=== PATIENT | male | born 1955 | race Caucasian/White ===

== ENCOUNTER 2020-03-19 10:28 | Day surgery (SDC) | payer OTHER, SELFPAY ==
[2020-03-13 11:51] VITALS: BMI 32.5
--- NOTE | 2020-03-17 14:00 | P.CONAN_ITS ---
Documented by User: Janeth Cheatham 03/17/20 14:01 HPI - Anesthesia Eval Consult details Narrative: 65yo M for Upper Endoscopy and Colonoscopy [facility] Past Medical History Medical History Cervical vertebral fusion Depression Diabetes Elevated cholesterol GERD (gastroesophageal reflux disease) Hx of anxiety disorder Thyroid disease Surgical History Surgical History H/O cervical discectomy H/O colonoscopy History of esophagogastroduodenoscopy (EGD) History of revision of total knee arthroplasty Hx of shoulder surgery Hx of total knee arthroplasty Hx of ventral hernia repair Social History Social History Smoking Status: Former smoker Advance Directives Information Provided: No Meds Allergies Allergy/AdvReac Type Severity Reaction Status Date / Time diclofenac Allergy Intermediate Itching Verified 03/13/20 11:56 Home Medications Medication Instructions Recorded Confirmed Type atorvastatin 1 tab PO DAILY 03/13/20 03/13/20 History cholecalciferol (vitamin D3) 50 mcg PO DAILY 03/13/20 03/13/20 History [Vitamin D3] dulaglutide [Trulicity] 1 mg SUBCUT QWEEK 03/13/20 03/13/20 History empagliflozin [Jardiance] 1 tab PO DAILY 03/13/20 03/13/20 History fenofibrate nanocrystallized 48 mg PO DAILY 03/13/20 03/13/20 History ferrous sulfate 325 mg PO DAILY 03/13/20 03/13/20 History insulin glargine [Lantus Solostar 56 unit SUBCUT BEDTIME 03/13/20 03/13/20 History U-100 Insulin] levothyroxine 1 tab PO DAILY 03/13/20 03/13/20 History melatonin 3 mg PO BEDTIME PRN 03/13/20 03/13/20 History metformin 2 tab PO BID 03/13/20 03/13/20 History omeprazole 1 cap PO BID 03/13/20 03/13/20 History paroxetine HCl 1 tab PO QAM 03/13/20 03/13/20 History tamsulosin 1 cap PO DAILY 03/13/20 03/13/20 History Exam Exam Date and Time: March 17, 2020 1400 Height,Weight and Vital Signs: Height 6 ft Weight 108.862 kg Assessment and Plan Assessment Anesthesia Assessment: Chart Reviewed Documented by User: Tika Rao 03/19/20 10:56 PMFSH Past Medical History Medical History Cervical vertebral fusion Depression Diabetes Elevated cholesterol GERD (gastroesophageal reflux disease) Hx of anxiety disorder Thyroid disease Surgical History Surgical History H/O cervical discectomy H/O colonoscopy History of esophagogastroduodenoscopy (EGD) History of revision of total knee arthroplasty Hx of shoulder surgery Hx of total knee arthroplasty Hx of ventral hernia repair Social History Social History Smoking Status: Former smoker Advance Directives Information Provided: No Meds Allergies Allergy/AdvReac Type Severity Reaction Status Date / Time diclofenac Allergy Intermediate Itching Verified 03/13/20 11:56 Home Medications Medication Instructions Recorded Confirmed Type atorvastatin 1 tab PO DAILY 03/13/20 03/13/20 History cholecalciferol (vitamin D3) 50 mcg PO DAILY 03/13/20 03/13/20 History [Vitamin D3] dulaglutide [Trulicity] 1 mg SUBCUT QWEEK 03/13/20 03/13/20 History empagliflozin [Jardiance] 1 tab PO DAILY 03/13/20 03/13/20 History fenofibrate nanocrystallized 48 mg PO DAILY 03/13/20 03/13/20 History ferrous sulfate 325 mg PO DAILY 03/13/20 03/13/20 History insulin glargine [Lantus Solostar 56 unit SUBCUT BEDTIME 03/13/20 03/13/20 Hi story U-100 Insulin] levothyroxine 1 tab PO DAILY 03/13/20 03/13/20 History melatonin 3 mg PO BEDTIME PRN 03/13/20 03/13/20 History metformin 2 tab PO BID 03/13/20 03/13/20 History omeprazole 1 cap PO BID 03/13/20 03/13/20 History paroxetine HCl 1 tab PO QAM 03/13/20 03/13/20 History tamsulosin 1 cap PO DAILY 03/13/20 03/13/20 History Exam Airway Mallampati Class: II TM Dist: >3cm Neck ROM: Full Denture: Lower Assessment and Plan Assessment Anesthesia Assessment: Anesthesia Plan Discussed Final Anesthetic Review NPO: Yes ASA Class: II Final Preanesthetic Review: No Changes in Pt Med Stat, Meds/Allgs Chart Reviewed, Consent Obtained/Reviewed and Anes Risks/Benef Reviewed Patient Risk: Intermediate Procedure Risk: Low Assessment/Block/Sedation in SS: Assess/Block/Sedation-SS Anesthetic Plan Anesthetic Plan: MAC: Disposition: Standard PACU
--- NOTE | 2020-03-19 10:43 | PC.NURSE ---
patient admin his own fleet enema and still remains liquid brown.
--- NOTE | 2020-03-19 10:46 | PC.NURSE ---
md elder aware of liquid brown stool after first enema. second enema being performed by patient in bathroom per md elder. racheal well.
[2020-03-19] MEDS: Sodium Phosphate,Mono-Dibasic 133 ML ENEMA 266 ML PR (10:51)
[2020-03-19 10:54] VITALS: BP 163/139; PULSE 98; RESP 16; TEMP 36.4; O2SAT 96
[2020-03-19 10:58] LABS: Glucose, Whole Blood 115 mg/dL (60-115)
[2020-03-19] MEDS: Lactated Ringers 1,000 ML 100 ML IVCONT (10:59)
--- NOTE | 2020-03-19 10:59 | MHC.SHP ---
Pre-Procedural Eval Section B Chief Complaint: Gerd, Hx of Tubular Adenomas Polyp Relevant Family History (Specify if Yes): No Relevant Social History: None Present Medications: see Short Stay Collaborative assessment Medical History: Significant History (hx of gastric polyp, hypothyroidism, depression, Dm,. anxiety, GERD) History of Previous Operations: Relevant previous surgery/procedure and date(s) (knee replaceemnt, hernia repair) Allergies: Allergies Allergy/AdvReac Type Severity Reaction Status Date / Time diclofenac Allergy Intermediate Itching Verified 03/13/20 11:56 Review of Systems Sugical H&P ROS: Negative: Constitution, Cardiovascular, Respiratory, Neurological, Psychiatric, Hem-Onc, Allergic/Immunologic, Gastrointestinal, Genitourinary, Musculoskeletal, Integumentary, Endocrine and Eyes/Ears/Nose/Throat Exam Surgical H&P Exam: Normal: HEENT, Normal: Heart, Normal: Lungs, Normal: Extremities, Normal: Abdomen, Normal: Skin and Normal: Neurological Plan Diagnosis/Plan: Unchanged Patient has been examined and remains a candidate for the planned procedure
--- NOTE | 2020-03-19 11:01 | PC.NURSE ---
md elder aware of second fleet enema without success. remains liquid brown.
--- NOTE | 2020-03-19 11:13 | PM.OP ---
Brief Operative Note Date of procedure: 03/19/20 Pre-op diagnosis: hx of anemia and gastric polyp Post-op diagnosis: same Procedure: see op note Surgeon: Ely Colmenares MD Anesthesia: MAC Estimated blood loss (mL): 0 Condition: stable Disposition: PACU
--- NOTE | 2020-03-19 11:22 | P.OP_ITS ---
Operative Note Operative Note Narrative: Operative Information Procedure Description: EGD, Colonoscopy FLEXIBLE TRANSORAL UPPER GASTROINTESTINAL ENDOSCOPY AND COLONOSCOPY PROCEDURE NOTE UPPER ENDOSCOPY Consent: Indications for the procedure and potential complications of bleeding, perforation, reaction to medications and missed diagnosis were discussed with the patient and informed consent was obtained. Instrument: Olympus GIF H 190 J mid size upper endoscope Monitoring: Vital signs and clinical assessment, continuous EKG monitoring, Pulse oximetry, Carbon Dioxide monitoring and blood pressure monitoring were done throughout the procedure. Procedure: The patient was placed in the left lateral decubitis position and pre-procedure medications were administered and a bite block was placed. The endoscope was inserted into the mouth and advanced under direct vision to the third part of duodenum. A careful inspection was made as the upper endoscope was withdrawn including a retroflexed examination of the proximal stomach; Findings and interventions are described below. Findings: Larynx:normal Esophagus: GE junction at 40 cm, diaphragm hiatus at 40 cm, irregular Z line slightly nodular appearance, bx taken Stomach: Patchy erythema min antrum scar from prior polypectomy noted. Biopsies were obtained. Grade 2 flap valve on retroflexed examination of the cardia. Several benign appearing fundic gland polyps noted Duodenum: Normal bulb and descending duodenum, bx taken Intervention: Biopsies as noted above COLONOSCOPY Instrument: Olympus variable stiffness pediatric scope 190L Colonoscopy Monitoring: Vital signs and clinical assessment, continuous EKG monitoring, Pulse oximetry, Carbon Dioxide monitoring and blood pressure monitoring were done throughout the procedure. Colon withdrawal time was 19 minutes. Procedure: The patient was placed in the left lateral decubitis position and pre-procedure medications were administered. After a digital rectal examination of the ano-rectum, the video colonoscope was inserted into the rectum and advanced through the colon to the cecum/TI. The colonoscope was slowly withdrawn in a retrograde panoramic fashion and the colon mucosa was carefully examined including a retroflexed view of the rectum. Findings and interventions are described below. Procedure Difficulty:easy Findings: Terminal Ileum-normal Cecum:normal Ascending Colon: normal Transverse Colon -normal Descending Colon:normal Sigmoid Colon: 8-10 mm sessile polyp removed with cold snare Rectum: Retroflexion with small internal hemorrhoids, grade I Anorectum - normal Colon preparation: [place] Bowel Preparation Scale Right colon; 1 Transverse colon: 2 Left colon; 1 (0 = Unprepared colon segment with mucosa not seen due to solid stool that cannot be cleared. 1 = Portion of mucosa of the colon segment seen, but other areas of the colon segment not well seen due to staining, residual stool and/or opaque liquid. 2 = Minor amount of residual staining, small fragments of stool and/or opaque liquid, but mucosa of colon segment seen well. 3 = Entire mucosa of colon segment seen well with no residual staining, small fragments of stool or opaque liquid) Impression and Post Procedure Diagnosis: Endoscopy Findings: gastritis Colonoscopy Findings: polyp internal hemorrhoids Plan: Await Pathology results Repeat Colonoscopy in 6-12 months due to prep or earlier if clinically indicated High fiber diet leaflet avoid straining at stool, epsom salts and sitz bath prn, anusol supps or cream prn Above findings were reviewed with the patient and relevant handouts were provided if indicated.
[2020-03-19 11:57] VITALS: BP 139/88; PULSE 87; RESP 16; TEMP 36.1; O2SAT 97
[2020-03-19 12:10] VITALS: BP 128/79; PULSE 85; RESP 20; O2SAT 95
--- NOTE | 2020-03-19 12:37 | HO.POSTANES ---
Post Anesthesia Evaluation Post Anesthesia Evaluation Vital Signs: Vital Signs Temp Pulse Resp BP Pulse Ox 03/19/20 12:10 97.0 F 85 20 128/79 95 03/19/20 11:57 97.0 F 87 16 139/88 97 03/19/20 10:54 97.6 F 98 16 163/139 H 96 Anesthesia: General (tiva) Mental Status: Awake Pain Control: Satisfactory Nausea/Vomiting: None Hydration: Adequate Anesthesia-Related Issues: No Anes. Related Issues
== END 2020-03-19 12:49 | disposition home or self-care (01) ==
PROVIDERS: Visit Provider Internal Medicine Gastroenterology
PROC: (CPT 45385; principal; 2020-03-19 11:30)
DX: Z12.11 Encounter for screening for malignant neoplasm of colon (principal); Z86.010 Personal history of colon polyps; D12.5 Benign neoplasm of sigmoid colon; K64.0 First degree hemorrhoids; K29.60 Other gastritis without bleeding; K31.7 Polyp of stomach and duodenum; K44.9 Diaphragmatic hernia without obstruction or gangrene; K21.9 Gastro-esophageal reflux disease without esophagitis; E11.9 Type 2 diabetes mellitus without complications; Z79.4 Long term (current) use of insulin; F32.9 Major depressive disorder, single episode, unspecified; E03.9 Hypothyroidism, unspecified; Z79.899 Other long term (current) drug therapy; Z88.8 Allergy status to other drugs, medicaments and biological substances; Z96.651 Presence of right artificial knee joint; Z87.891 Personal history of nicotine dependence
CPT/HCPCS: 45385; 43239; 82947; 88305; 88342

== ENCOUNTER → 2020-04-02 12:59 | Outpatient (BNVA) | payer OTHER, SELFPAY | PROVIDERS: Visit Provider Nurse Practitioner | DX: D12.5 Benign neoplasm of sigmoid colon (principal); K64.0 First degree hemorrhoids; K21.9 Gastro-esophageal reflux disease without esophagitis; D64.9 Anemia, unspecified; Z86.010 Personal history of colon polyps; Z87.19 Personal history of other diseases of the digestive system; Z98.890 Other specified postprocedural states | CPT/HCPCS: Q3014 ==

== ENCOUNTER 2020-06-04 09:26 | Outpatient (REF) | payer OTHER, SELFPAY | END 2020-06-04 09:27 | disposition home or self-care (01) | LOC: HO.HMGCLDS 09:26 | PROVIDERS: PCP Nurse Practitioner Family; Visit Provider Nurse Practitioner Gerontology | DX: Z13.89 Encounter for screening for other disorder (principal) ==

== ENCOUNTER 2020-06-05 10:20 | Outpatient (REF) | payer OTHER, SELFPAY ==
[2020-06-05 11:14] LABS: MANUAL DIFF FLAG NO
[2020-06-05 11:22] LABS: Basophils Percent Auto 0.6 % (0-2); Eosinophils Absolute Auto 0.3 X10*3/uL (0.0-0.4); Eosinophils Percent Auto 5.1 % (0-4); Hematocrit 50.8 % (42-52); Hemoglobin 16.7 g/dl (14.0-18.0); Imm Gran Abs Auto 0.04 X10*3/uL (0.00-0.03); Imm Gran Pct Auto 0.8 % (0.0-0.4); Lymphocytes Absolute Auto 1.6 X10*3/uL (1.2-4.9); Lymphocytes Percent Auto 29.9 % (20-40); Mean Corpuscular HGB Conc 32.9 g/dl (31.0-36.0); Mean Corpuscular Hemoglobin 31.2 pg (27.0-33.0); Mean Corpuscular Volume 94.8 fL (80-98); Mean Platelet Volume 11.3 fL (9.4-12.4); Monocytes Absolute Auto 0.5 X10*3/uL (0.1-1.2); Monocytes Percent Auto 9.2 % (2-11); Neutrophils Absolute Auto 2.9 X10*3/uL (2.0-8.3); Neutrophils Percent Auto 54.4 % (45-73); Platelet Count 147 X10*3/uL (160-400); Red Blood Count 5.36 X10*6/uL (4.60-5.80); Red Cell Distribution Width 13.6 % (11.0-16.0); White Blood Count 5.3 X10*3/uL (4.8-10.8)
[2020-06-05 11:30] LABS: Estimated Average Glucose 157 mg/dL; Hemoglobin A1c % 7.1 %
[2020-06-05 12:15] LABS: Alanine Aminotransferase 35 U/L (0-40); Albumin Level 4.6 g/dL (3.5-5.0); Alkaline Phosphatase 65 U/L (39-117); Anion Gap 14 (12-20); Aspartate Amino Transferase 19 U/L (5-37); Bilirubin Total 0.8 mg/dL (0.0-1.0); Blood Urea Nitrogen 16 mg/dL (9-16); Carbon Dioxide 31 mmol/L (22-29); Chloride 103 mmol/L (96-108); Cholesterol 167 mg/dL; Estimated Glomerular Filt Rate > 60; Ferritin 37 ng/mL (20-250); Glucose Fasting 144 mg/dL (60-99); HDL Cholesterol 32 mg/dL; LDL Cholesterol Calculated 95 mg/dl; Potassium 4.4 mmol/l (3.3-5.1); Sodium 144 mmol/L (135-145); TSH reflex Free T4 3.41 mIU/mL (0.32-4.0); Total Protein 6.7 g/dL (6.5-8.0); Triglycerides 202 mg/dL
[2020-06-05 12:28] LABS: Creatinine Urine 106.55 mg/dL; Microalbum/Creatinine Ratio Ur 5.6 ug/mg cr
== END 2020-06-05 10:21 | disposition home or self-care (01) ==
LOC: HO.HMGCLDS 10:20
PROVIDERS: Nurse Practitioner Gerontology; PCP Nurse Practitioner Family; Visit Provider Nurse Practitioner Family
DX: D64.9 Anemia, unspecified (principal); E03.9 Hypothyroidism, unspecified; E11.9 Type 2 diabetes mellitus without complications; D69.6 Thrombocytopenia, unspecified
CPT/HCPCS: 36415; 80053; 80061; 82043; 82728; 83036; 84443; 85025

== ENCOUNTER → 2020-07-04 08:52 | Outpatient (BNVA) | payer OTHER, SELFPAY | PROVIDERS: PCP Nurse Practitioner Family; Visit Provider Nurse Practitioner Gerontology | DX: E11.42 Type 2 diabetes mellitus with diabetic polyneuropathy (principal); E78.5 Hyperlipidemia, unspecified | CPT/HCPCS: 82947; 99212 ==

== ENCOUNTER 2020-07-09 10:08 | Outpatient (REF) | payer OTHER, SELFPAY ==
[2020-07-09 11:07] LABS: MANUAL DIFF FLAG NO
[2020-07-09 11:24] LABS: Basophils Percent Auto 0.5 % (0-2); Eosinophils Absolute Auto 0.2 X10*3/uL (0.0-0.4); Eosinophils Percent Auto 3.6 % (0-4); Hematocrit 50.3 % (42-52); Hemoglobin 16.4 g/dl (14.0-18.0); Imm Gran Abs Auto 0.03 X10*3/uL (0.00-0.03); Imm Gran Pct Auto 0.5 % (0.0-0.4); Lymphocytes Absolute Auto 1.7 X10*3/uL (1.2-4.9); Lymphocytes Percent Auto 26.4 % (20-40); Mean Corpuscular HGB Conc 32.6 g/dl (31.0-36.0); Mean Corpuscular Hemoglobin 30.8 pg (27.0-33.0); Mean Corpuscular Volume 94.5 fL (80-98); Mean Platelet Volume 11.3 fL (9.4-12.4); Monocytes Absolute Auto 0.5 X10*3/uL (0.1-1.2); Monocytes Percent Auto 7.9 % (2-11); Neutrophils Percent Auto 61.1 % (45-73); Platelet Count 177 X10*3/uL (160-400); Red Blood Count 5.32 X10*6/uL (4.60-5.80); Red Cell Distribution Width 13.7 % (11.0-16.0); White Blood Count 6.5 X10*3/uL (4.8-10.8)
--- NOTE | 2020-07-21 09:56 | HO.ANESPROP2 ---
[facility] Active Problems Active Problems: All Active Problems (Updated 07/15/20 @ 14:10 by Anabella Scanlon) GERD (gastroesophageal reflux disease) (Acute) Tubular adenoma of colon (Acute) History of gastric polyp (Acute) Anemia (Acute) Thrombocytopenia (Acute) Type 2 diabetes mellitus with polyneuropathy (Acute) Hyperlipidemia LDL goal <100 (Acute) Diabetes (Acute) Hypothyroid (Acute) Past Medical History Medical History Cervical vertebral fusion Depression Diabetes Elevated cholesterol Hx of anxiety disorder Hyperlipidemia LDL goal <100 Hypothyroid Type 2 diabetes mellitus with polyneuropathy Family History Family History Father Heart attack Diabetes Mother Cancer Brother Diabetes Surgical History Surgical History H/O cervical discectomy H/O colonoscopy History of esophagogastroduodenoscopy (EGD) History of revision of total knee arthroplasty Hx of endoscopy Hx of shoulder surgery Hx of total knee arthroplasty Hx of ventral hernia repair Social History Social History Household Members: Spouse Alcohol intake: current Alcohol intake frequency: a few times a month Smoking Status: Former smoker Use of substances other than those prescribed or required for medical reasons: No Advance Directives: No Advance Directives Information Provided: No Advance Directives on File: No Meds Allergies Allergy/AdvReac Type Severity Reaction Status Date / Time diclofenac Allergy Intermediate Itching Verified 07/21/20 09:22 Home Medications Medication Instructions Recorded Confirmed Last Taken Type atorvastatin 1 tab PO DAILY 03/13/20 07/15/20 Unknown History fenofibrate nanocrystallized 48 mg PO DAILY 03/13/20 07/04/20 Unknown History ferrous sulfate 325 mg PO DAILY 03/13/20 07/15/20 07/18/20 06:00 History levothyroxine 1 tab PO DAILY 03/13/20 07/15/20 Unknown History melatonin 3 mg PO BEDTIME PRN 03/13/20 07/15/20 Unknown History metformin 1 tab PO QID 03/13/20 07/15/20 Unknown History insulin aspart U-100 100 unit/mL See Rx Instructions SUBCUT TID 07/04/20 07/15/20 Unknown History (3 mL) subcutaneous pen sildenafil (pulm.hypertension) 20 20 mg PO tab 07/04/20 07/04/20 Unknown History mg tablet Exam Exam Date and Time: July 21, 2020 0956 Pertinent Lab Results Pertinent Lab Results: Laboratory Tests 07/09/20 10:15 WBC 6.5 RBC 5.32 Hgb 16.4 Hct 50.3 MCV 94.5 MCH 30.8 MCHC 32.6 RDW 13.7 Plt Count 177 MPV 11.3 Immature Gran % (Auto) 0.5 H Neut % (Auto) 61.1 Lymph % (Auto) 26.4 Wells % (Auto) 7.9 Eos % (Auto) 3.6 Baso % (Auto) 0.5 Lymph # (Auto) 1.7 [place] # (Auto) 0.5 Eos # (Auto) 0.2 Baso # (Auto) 0.0 Abs Immat Gran (auto) 0.03 Absolute Neuts (auto) 4.0 Absolute Nucleated RBC 0.000 Nucleated RBC % (auto) 0.0 Airway Mallampati Class: II TM Dist: >3cm Neck ROM: Full Heart: RRR Lungs: CTA
== END 2020-07-09 10:09 | disposition home or self-care (01) ==
LOC: HO.HMGCLDS 10:08
PROVIDERS: PCP Nurse Practitioner Family; Visit Provider Nurse Practitioner Family
DX: D69.6 Thrombocytopenia, unspecified (principal)
CPT/HCPCS: 36415; 85025

== ENCOUNTER 2020-07-21 09:01 | Day surgery (SDC) | payer OTHER, SELFPAY ==
[2020-07-15 14:12] VITALS: BMI 31.1
--- NOTE | 2020-07-18 10:02 | P.CONAN_ITS ---
HPI - Anesthesia Eval Consult details Narrative: 65yo M for Colonoscopy s/p EGD and [place] with TIVA 03/2020 (? poor prep/polyp) PMFSH Active Problems Active Problems: All Active Problems (Updated 07/15/20 @ 14:10 by Anabella Scanlon) GERD (gastroesophageal reflux disease) (Acute) Tubular adenoma of colon (Acute) History of gastric polyp (Acute) Anemia (Acute) Thrombocytopenia (Acute) Type 2 diabetes mellitus with polyneuropathy (Acute) Hyperlipidemia LDL goal <100 (Acute) Diabetes (Acute) Hypothyroid (Acute) Past Medical History Medical History Cervical vertebral fusion Depression Diabetes Elevated cholesterol Hx of anxiety disorder Hyperlipidemia LDL goal <100 Hypothyroid Type 2 diabetes mellitus with polyneuropathy Family History Family History Father Heart attack Diabetes Mother Cancer Brother Diabetes Surgical History Surgical History H/O cervical discectomy H/O colonoscopy History of esophagogastroduodenoscopy (EGD) History of revision of total knee arthroplasty Hx of endoscopy Hx of shoulder surgery Hx of total knee arthroplasty Hx of ventral hernia repair Social History Social History Household Members: Spouse Alcohol intake: current Alcohol intake frequency: a few times a month Smoking Status: Former smoker Meds Allergies Allergy/AdvReac Type Severity Reaction Status Date / Time diclofenac Allergy Intermediate Itching Verified 07/21/20 09:22 Home Medications Medication Instructions Recorded Confirmed Last Taken Type atorvastatin 1 tab PO DAILY 03/13/20 07/15/20 Unknown History fenofibrate nanocrystallized 48 mg PO DAILY 03/13/20 07/04/20 Unknown History ferrous sulfate 325 mg PO DAILY 03/13/20 07/15/20 07/18/20 06:00 History levothyroxine 1 tab PO DAILY 03/13/20 07/15/20 Unknown History melatonin 3 mg PO BEDTIME PRN 03/13/20 07/15/20 Unknown History insulin aspart U-100 100 unit/mL See Rx Instructions SUBCUT TID 07/04/20 07/15/20 Unknown History (3 mL) subcutaneous pen sildenafil (pulm.hypertension) 20 20 mg PO tab 07/04/20 07/04/20 Unknown History mg tablet Exam Exam Date and Time: July 18, 2020 1002 Height,Weight and Vital Signs: Height 6 ft Weight 104.326 kg Pertinent Lab Results Pertinent Lab Results: Laboratory Tests 06/05/20 07/09/20 10:25 10:15 WBC 6.5 Hgb 16.4 Hct 50.3 Plt Count 177 Sodium 144 Potassium 4.4 Chloride 103 Carbon Dioxide 31 H BUN 16 Creatinine 0.87 Assessment and Plan Assessment Anesthesia Assessment: Chart Reviewed
[2020-07-21 09:22] LABS: Glucose, Whole Blood 143 mg/dL (60-115)
[2020-07-21 09:23] VITALS: BP 178/82; PULSE 80; RESP 18; TEMP 36.1; O2SAT 99
[2020-07-21] MEDS: Lactated Ringers 1,000 ML 100 ML IVCONT (09:34)
--- NOTE | 2020-07-21 09:34 | MHC.SHP ---
Pre-Procedural Eval Section B Chief Complaint: hx of polyps Relevant Family History (Specify if Yes): No Relevant Social History: None Present Medications: see Short Stay Collaborative assessment Medical History: Significant History (Cervical vertebral fusion Depression Diabetes Elevated cholesterol Hx of anxiety disorder Hyperlipidemia LDL goal <100 Hypothyroid Type 2 diabetes mellitus with polyneuropathy) History of Previous Operations: Relevant previous surgery/procedure and date(s) (H/O cervical discectomy H/O colonoscopy History of esophagogastroduodenoscopy (EGD) History of revision of total knee arthroplasty Hx of endoscopy Hx of shoulder surgery Hx of total knee arthroplasty Hx of ventral hernia repair) Allergies: Allergies Allergy/AdvReac Type Severity Reaction Status Date / Time diclofenac Allergy Intermediate Itching Verified 07/21/20 09:22 Review of Systems Sugical H&P ROS: Negative: Constitution, Cardiovascular, Respiratory, Neurological, Psychiatric, Hem-Onc, Allergic/Immunologic, Gastrointestinal, Genitourinary, Musculoskeletal, Integumentary, Endocrine and Eyes/Ears/Nose/Throat Exam Surgical H&P Exam: Normal: HEENT, Normal: Heart, Normal: Lungs, Normal: Extremities, Normal: Abdomen, Normal: Skin and Normal: Neurological Plan Diagnosis/Plan: Unchanged I have reviewed the history and physical and performed a pertinent physical examination on my patient. No changes have occurred unless specified.
--- NOTE | 2020-07-21 09:49 | PM.OP ---
Brief Operative Note Date of Service: 07/21/20 Pre-op diagnosis: hx of polyp Post-op diagnosis: same Procedure: see op note Surgeon: Ely Colmenares MD Anesthesia: MAC Estimated blood loss (mL): 0 Condition: stable Disposition: PACU
--- NOTE | 2020-07-21 09:49 | W.PM.OPN ---
Operative Note Operative Note Date of Service: 07/21/20 Narrative: Operative Information Procedure Description: Colonoscopy COLONOSCOPY Instrument: Olympus variable stiffness pediatric scope 190L Colonoscopy Monitoring: Vital signs and clinical assessment, continuous EKG monitoring, Pulse oximetry, Carbon Dioxide monitoring and blood pressure monitoring were done throughout the procedure. Colon withdrawal time was 13 minutes. Procedure: The patient was placed in the left lateral decubitis position and pre-procedure medications were administered. After a digital rectal examination of the ano-rectum, the video colonoscope was inserted into the rectum and advanced through the colon to the cecum/TI. The colonoscope was slowly withdrawn in a retrograde panoramic fashion and the colon mucosa was carefully examined including a retroflexed view of the rectum. Findings and interventions are described below. Procedure Difficulty: easy Findings: Terminal Ileum-unable to visualize due to prep Cecum:normal Ascending Colon: normal Transverse Colon -normal Descending Colon:normal Sigmoid Colon: Few scattered diverticula noted Rectum: Retroflexion with small internal hemorrhoids, grade I Anorectum - normal Colon preparation: [place] Bowel Preparation Scale Right colon; 0 Transverse colon: 0 Left colon; 1 (0 = Unprepared colon segment with mucosa not seen due to solid stool that cannot be cleared. 1 = Portion of mucosa of the colon segment seen, but other areas of the colon segment not well seen due to staining, residual stool and/or opaque liquid. 2 = Minor amount of residual staining, small fragments of stool and/or opaque liquid, but mucosa of colon segment seen well. 3 = Entire mucosa of colon segment seen well with no residual staining, small fragments of stool or opaque liquid) Impression and Post Procedure Diagnosis: sub optimal prep internal hemorrhoids diverticulosis Plan: High fiber diet leaflet Avoid straining at stool, epsom salts and sitz bath, anusol supps or cream as needed Repeat Colonoscopy in 6-12 month with review on prep instructions, possibly 2 d prep next time or enhanced prep Above findings were reviewed with the patient and relevant handouts were provided if indicated.
[2020-07-21 10:16] VITALS: BP 125/68; PULSE 70; RESP 20; TEMP 36.1; O2SAT 97
[2020-07-21 10:31] VITALS: BP 120/73; PULSE 71; RESP 20; O2SAT 97
--- NOTE | 2020-07-21 19:26 | HO.POSTANES ---
Post Anesthesia Evaluation Post Anesthesia Evaluation Vital Signs: Vital Signs Temp Pulse Resp BP Pulse Ox 07/21/20 10:31 71 20 120/73 97 07/21/20 10:16 96.9 F 70 20 125/68 97 07/21/20 09:23 96.9 F 80 18 178/82 H 99 Anesthesia: Monitored Mental Status: Awake Pain Control: Satisfactory Nausea/Vomiting: None Hydration: Adequate Anesthesia-Related Issues: No Anes. Related Issues
== END 2020-07-21 11:17 | disposition home or self-care (01) ==
PROVIDERS: PCP Nurse Practitioner Family; Visit Provider Internal Medicine Gastroenterology
PROC: 0DJD8ZZ Inspection of Lower Intestinal Tract, Via Natural or Artificial Opening Endoscopic (ICD-10-PCS; CPT 45378; principal; 2020-07-21 10:20)
DX: Z12.11 Encounter for screening for malignant neoplasm of colon (principal); Z86.010 Personal history of colon polyps; K57.30 Diverticulosis of large intestine without perforation or abscess without bleeding; K64.0 First degree hemorrhoids; K21.9 Gastro-esophageal reflux disease without esophagitis; F32.9 Major depressive disorder, single episode, unspecified; E11.42 Type 2 diabetes mellitus with diabetic polyneuropathy; Z79.4 Long term (current) use of insulin; Z98.1 Arthrodesis status; Z87.891 Personal history of nicotine dependence; Z88.8 Allergy status to other drugs, medicaments and biological substances; Z96.651 Presence of right artificial knee joint; Z79.899 Other long term (current) drug therapy
CPT/HCPCS: G0105; 82947

== ENCOUNTER → 2020-08-11 14:24 | Outpatient (BNVA) | payer OTHER, SELFPAY | PROVIDERS: PCP Nurse Practitioner Family; Visit Provider Internal Medicine Gastroenterology | DX: Z13.89 Encounter for screening for other disorder (principal) | CPT/HCPCS: Q3014 ==

== ENCOUNTER → 2020-10-01 08:22 | Outpatient (BNVA) | payer OTHER, SELFPAY | PROVIDERS: PCP Nurse Practitioner Family; Visit Provider Nurse Practitioner Gerontology | DX: E11.42 Type 2 diabetes mellitus with diabetic polyneuropathy (principal); E78.5 Hyperlipidemia, unspecified | CPT/HCPCS: Q3014 ==

== ENCOUNTER 2020-11-24 07:10 | Day surgery (SDC) | payer OTHER, SELFPAY ==
[2020-11-18 11:35] VITALS: BMI 32.5
--- NOTE | 2020-11-21 11:56 | HO.ANESPROP2 ---
HPI - Anesthesia Eval Consult details Narrative: 65yo M for Colonoscopy s/p colo with TIVA 07/2020. Repeat 2/2 poor prep PMFSH Active Problems Active Problems: All Active Problems (Updated 07/15/20 @ 14:10 by Anabella Scanlon) GERD (gastroesophageal reflux disease) (Acute) Tubular adenoma of colon (Acute) History of gastric polyp (Acute) Anemia (Acute) Thrombocytopenia (Acute) Type 2 diabetes mellitus with polyneuropathy (Acute) Hyperlipidemia LDL goal <100 (Acute) Diabetes (Acute) Hypothyroid (Acute) Past Medical History Medical History Cervical vertebral fusion Depression Diabetes Elevated cholesterol Hx of anxiety disorder Hyperlipidemia LDL goal <100 Hypothyroid Type 2 diabetes mellitus with polyneuropathy Family History Family History Father Heart attack Diabetes Mother Cancer Brother Diabetes Surgical History Surgical History H/O cervical discectomy H/O colonoscopy History of esophagogastroduodenoscopy (EGD) History of revision of total knee arthroplasty Hx of endoscopy Hx of shoulder surgery Hx of total knee arthroplasty Hx of ventral hernia repair Social History Social History Household Members: Spouse Alcohol intake: current Alcohol intake frequency: a few times a month Patient Tobacco Use Status: Never used Tobacco Meds Allergies Allergy/AdvReac Type Severity Reaction Status Date / Time diclofenac Allergy Intermediate Itching Verified 10/01/20 09:16 Home Medications Medication Instructions Recorded Confirmed Last Taken Type melatonin 3 mg PO BEDTIME PRN 03/13/20 11/18/20 Unknown History sildenafil (pulm.hypertension) 20 20 mg PO DAILY tab 07/04/20 11/18/20 Unknown History mg tablet insulin aspart U-100 100 unit/mL See Rx Instructions SUBCUT TID 10/01/20 11/18/20 Unknown History (3 mL) subcutaneous pen Exam Exam Date and Time: November 21, 2020 1157 Height,Weight and Vital Signs: Height 6 ft Weight 108.862 kg Assessment and Plan Assessment Anesthesia Assessment: Chart Reviewed
[2020-11-24 07:18] VITALS: BP 157/61; PULSE 72; RESP 20; TEMP 36.4; O2SAT 96
[2020-11-24] MEDS: Lactated Ringers 1,000 ML 100 ML IVCONT (07:33)
[2020-11-24] MEDS: Sodium Phosphate,Mono-Dibasic 133 ML ENEMA PR (07:35)
--- NOTE | 2020-11-24 07:39 | PC.NURSE ---
fleets given at 0735
--- NOTE | 2020-11-24 07:47 | P.CONAN_ITS ---
[facility] Active Problems Active Problems: All Active Problems (Updated 07/15/20 @ 14:10 by Anabella huff) GERD (gastroesophageal reflux disease) (Acute) Tubular adenoma of colon (Acute) History of gastric polyp (Acute) Anemia (Acute) Thrombocytopenia (Acute) Type 2 diabetes mellitus with polyneuropathy (Acute) Hyperlipidemia LDL goal <100 (Acute) Diabetes (Acute) Hypothyroid (Acute) Past Medical History Medical History Cervical vertebral fusion Depression Diabetes Elevated cholesterol Hx of anxiety disorder Hyperlipidemia LDL goal <100 Hypothyroid Type 2 diabetes mellitus with polyneuropathy Family History Family History Father Heart attack Diabetes Mother Cancer Brother Diabetes Surgical History Surgical History H/O cervical discectomy H/O colonoscopy History of esophagogastroduodenoscopy (EGD) History of revision of total knee arthroplasty Hx of endoscopy Hx of shoulder surgery Hx of total knee arthroplasty Hx of ventral hernia repair Social History Social History Household Members: Spouse Alcohol intake: current Alcohol intake frequency: a few times a month Patient Tobacco Use Status: Never used Tobacco Use of substances other than those prescribed or required for medical reasons: No Have you been hit, kicked, punched, or otherwise hurt by someone within the past year? If so, by whom?: No Are you DNR?: No Advance Directives: No Advance Directives Information Provided: No Recently lost weight without trying: No Nutrition Risks: No Nutritional Risk Poor oral hygiene: No Meds Allergies Allergy/AdvReac Type Severity Reaction Status Date / Time diclofenac Allergy Intermediate Itching Verified 10/01/20 09:16 Active Medications: Current Medications Generic Name Dose Route Start Last Admin Trade Name Freq PRN Reason Stop Dose Admin Lactated Ringer's 1,000 mls @ 100 mls/hr 11/24/20 07:30 11/24/20 07:33 Lr IVCONT 100 mls/hr .Q10H LUIS ANTONIO Administration Home Medications Medication Instructions Recorded Confirmed Last Taken Type melatonin 3 mg PO BEDTIME PRN 03/13/20 11/18/20 Unknown History sildenafil (pulm.hypertension) 20 20 mg PO DAILY tab 07/04/20 11/18/20 Unknown History mg tablet insulin aspart U-100 100 unit/mL See Rx Instructions SUBCUT TID 10/01/20 11/18/20 Unknown History (3 mL) subcutaneous pen Exam Exam Date and Time: November 24, 2020 0747 Height,Weight and Vital Signs: Height 6 ft Weight 108.862 kg Last Vital Signs Temp 97.5 F 11/24/20 07:18 Pulse 72 11/24/20 07:18 Resp 20 11/24/20 07:18 BP 157/61 H 11/24/20 07:18 Pulse Ox 96 11/24/20 07:18 Airway Mallampati Class: III TM Dist: >3cm Neck ROM: Full Heart: RRR Lungs: CTA
--- NOTE | 2020-11-24 07:52 | MHC.SHP ---
Pre-Procedural Eval Section A Date of Service: 11/24/20 Section B Chief Complaint: Hx of colon polyps Relevant Family History (Specify if Yes): No Relevant Social History: None Present Medications: see Short Stay Collaborative assessment Medical History: Significant History (Cervical vertebral fusion Depression Diabetes Elevated cholesterol Hx of anxiety disorder Hyperlipidemia LDL goal <100 Hypothyroid Type 2 diabetes mellitus with polyneuropathy) History of Previous Operations: Relevant previous surgery/procedure and date(s) (H/O cervical discectomy H/O colonoscopy History of esophagogastroduodenoscopy (EGD) History of revision of total knee arthroplasty Hx of endoscopy Hx of shoulder surgery Hx of total knee arthroplasty Hx of ventral hernia repair) Allergies: Allergies Allergy/AdvReac Type Severity Reaction Status Date / Time diclofenac Allergy Intermediate Itching Verified 10/01/20 09:16 Review of Systems Sugical H&P ROS: Negative: Constitution, Cardiovascular, Respiratory, Neurological, Psychiatric, Hem-Onc, Allergic/Immunologic, Gastrointestinal, Genitourinary, Musculoskeletal, Integumentary, Endocrine and Eyes/Ears/Nose/Throat Plan I have reviewed the history and physical and performed a pertinent physical examination on my patient. No changes have occurred unless specified.
[2020-11-24 07:57] LABS: Glucose, Whole Blood 166 mg/dL (60-115)
--- NOTE | 2020-11-24 08:31 | PC.NURSE ---
results yellow after fleets
--- NOTE | 2020-11-24 09:14 | PM.OP ---
Brief Operative Note Date of Service: 11/24/20 Pre-op diagnosis: colon screen Post-op diagnosis: same Procedure: see op note Surgeon: Ely Colmenares MD Anesthesia: MAC Was an Mortgage Branch Manager used for this Procedure?: No Estimated blood loss (mL): 0 Condition: stable Disposition: PACU
--- NOTE | 2020-11-24 09:15 | P.OP_ITS ---
Operative Note Operative Note Date of Service: 11/24/20 Narrative: Operative Information Procedure Description: Colonoscopy COLONOSCOPY Instrument: Olympus variable stiffness pediatric scope 190L Colonoscopy Monitoring: Vital signs and clinical assessment, continuous EKG monitoring, Pulse oximetry, Carbon Dioxide monitoring and blood pressure monitoring were done throughout the procedure. Colon withdrawal time was 29 minutes. Procedure: The patient was placed in the left lateral decubitis position and pre-procedure medications were administered. After a digital rectal examination of the ano-rectum, the video colonoscope was inserted into the rectum and advanced through the colon to the cecum/TI. The colonoscope was slowly withdrawn in a retrograde panoramic fashion and the colon mucosa was carefully examined including a retroflexed view of the rectum. Findings and interventions are described below. Procedure Difficulty:moderate Findings: Terminal Ileum-normal Cecum:normal Ascending Colon: normal Transverse Colon -normal Descending Colon:normal Sigmoid Colon: 8 mm sessile polyp removed with cold snare, diverticulosis noted Rectum: Retroflexion with small internal hemorrhoids, grade I Anorectum - normal Colon preparation: [place] Bowel Preparation Scale Right colon; 2 Transverse colon: 2 Left colon; 2 (0 = Unprepared colon segment with mucosa not seen due to solid stool that cannot be cleared. 1 = Portion of mucosa of the colon segment seen, but other areas of the colon segment not well seen due to staining, residual stool and/or opaque liquid. 2 = Minor amount of residual staining, small fragments of stool and/or opaque liquid, but mucosa of colon segment seen well. 3 = Entire mucosa of colon segment seen well with no residual staining, small fragments of stool or opaque liquid) Impression and Post Procedure Diagnosis: polyp internal hemorrhoids diverticular disease Plan: High fiber diet leaflet Avoid straining at stool, epsom salts and sitz bath, anusol supps or cream Repeat Colonoscopy in 5 years or earlier if clinically indicated Above findings were reviewed with the patient and relevant handouts were provided if indicated.
[2020-11-24 09:20] VITALS: BP 127/65; PULSE 66; RESP 16; TEMP 36.4; O2SAT 96
[2020-11-24 09:37] VITALS: BP 128/72; PULSE 78; RESP 18; TEMP 36.4; O2SAT 98
--- NOTE | 2020-11-24 11:36 | HO.POSTANES ---
Post Anesthesia Evaluation Post Anesthesia Evaluation Vital Signs: Vital Signs Temp Pulse Resp BP Pulse Ox 11/24/20 09:37 97.6 F 78 18 128/72 98 11/24/20 09:20 97.5 F 66 16 127/65 96 11/24/20 07:18 97.5 F 72 20 157/61 H 96 Anesthesia: Monitored Mental Status: Awake Pain Control: Satisfactory Nausea/Vomiting: None Hydration: Adequate Anesthesia-Related Issues: No Anes. Related Issues
== END 2020-11-24 10:00 | disposition home or self-care (01) ==
PROVIDERS: PCP Nurse Practitioner Family; Visit Provider Internal Medicine Gastroenterology
PROC: 0DJD8ZZ Inspection of Lower Intestinal Tract, Via Natural or Artificial Opening Endoscopic (ICD-10-PCS; CPT 45378; principal; 2020-11-24 08:30)
DX: Z12.11 Encounter for screening for malignant neoplasm of colon (principal); Z86.010 Personal history of colon polyps; D12.5 Benign neoplasm of sigmoid colon; K57.30 Diverticulosis of large intestine without perforation or abscess without bleeding; K64.0 First degree hemorrhoids; F32.9 Major depressive disorder, single episode, unspecified; E11.42 Type 2 diabetes mellitus with diabetic polyneuropathy; Z79.4 Long term (current) use of insulin; Z79.899 Other long term (current) drug therapy; Z98.1 Arthrodesis status
CPT/HCPCS: 45385; 82947; 88305

== ENCOUNTER → 2020-12-02 09:30 | Outpatient (BNVA) | payer OTHER, SELFPAY | PROVIDERS: PCP Nurse Practitioner Family; Visit Provider Internal Medicine Gastroenterology | DX: D12.6 Benign neoplasm of colon, unspecified (principal) | CPT/HCPCS: Q3014 ==

== ENCOUNTER 2021-01-08 11:02 | Outpatient (REF) | payer OTHER, SELFPAY ==
[2021-01-08 13:46] LABS: MANUAL DIFF FLAG NO
[2021-01-08 13:56] LABS: Basophils Absolute Auto 0.1 X10*3/uL (0.0-0.2); Basophils Percent Auto 0.7 % (0-2); Eosinophils Absolute Auto 0.2 X10*3/uL (0.0-0.4); Eosinophils Percent Auto 3.1 % (0-4); Hematocrit 49.4 % (42-52); Hemoglobin 16.4 g/dl (14.0-18.0); Imm Gran Abs Auto 0.02 X10*3/uL (0.00-0.03); Imm Gran Pct Auto 0.3 % (0.0-0.4); Lymphocytes Absolute Auto 1.7 X10*3/uL (1.2-4.9); Mean Corpuscular HGB Conc 33.2 g/dl (31.0-36.0); Mean Corpuscular Hemoglobin 30.4 pg (27.0-33.0); Mean Corpuscular Volume 91.7 fL (80-98); Mean Platelet Volume 11.5 fL (9.4-12.4); Monocytes Absolute Auto 0.6 X10*3/uL (0.1-1.2); Monocytes Percent Auto 8.1 % (2-11); Neutrophils Absolute Auto 4.3 X10*3/uL (2.0-8.3); Neutrophils Percent Auto 62.8 % (45-73); Platelet Count 176 X10*3/uL (160-400); Red Blood Count 5.39 X10*6/uL (4.60-5.80); Red Cell Distribution Width 14.4 % (11.0-16.0); White Blood Count 6.8 X10*3/uL (4.8-10.8)
[2021-01-08 14:19] LABS: Iron 93 mcg/dL (45-160); Percent Iron Saturation 23 % (15-50); Total Iron Binding Capacity 406 mcg/dL (228-428); Unsaturated Iron Binding 313 ug/dL
[2021-01-08 14:25] LABS: Estimated Average Glucose 148 mg/dL; Hemoglobin A1c % 6.8 %
[2021-01-08 14:33] LABS: Thyroid Stimulating Hormone 4.57 uIU/mL (0.32-4.0)
[2021-01-08 14:34] LABS: Ferritin 38 ng/mL (20-250)
[2021-01-08 14:38] LABS: Vitamin B12 331 pg/mL (200-900)
== END 2021-01-08 11:03 | disposition home or self-care (01) ==
LOC: HO.HMGCLDS 11:02
PROVIDERS: PCP Nurse Practitioner Family; Visit Provider Nurse Practitioner Gerontology
DX: E11.42 Type 2 diabetes mellitus with diabetic polyneuropathy (principal); D64.9 Anemia, unspecified
CPT/HCPCS: 36415; 82607; 82728; 83036; 83540; 84443; 85025

== ENCOUNTER 2021-04-03 10:34 | Outpatient (REF) | payer OTHER, SELFPAY ==
[2021-04-03 14:00] LABS: Creatinine Urine 112.27 mg/dL; Microalbum/Creatinine Ratio Ur 8.9 ug/mg cr
[2021-04-03 14:02] LABS: Alanine Aminotransferase 18 U/L (0-40); Albumin Level 4.7 g/dL (3.5-5.0); Alkaline Phosphatase 75 U/L (39-117); Anion Gap 16 (12-20); Aspartate Amino Transferase 14 U/L (5-37); Bilirubin Total 0.7 mg/dL (0.0-1.0); Blood Urea Nitrogen 19 mg/dL (9-16); Calcium 9.5 mg/dL (8.4-10.2); Carbon Dioxide 27 mmol/L (22-29); Chloride 103 mmol/L (96-108); Cholesterol 163 mg/dL; Estimated Average Glucose 160 mg/dL; Estimated Glomerular Filt Rate > 60; Glucose Fasting 121 mg/dL (60-99); HDL Cholesterol 32 mg/dL; Hemoglobin A1c % 7.2 %; LDL Cholesterol Calculated 100 mg/dl; Potassium 4.3 mmol/L (3.3-5.1); Sodium 142 mmol/L (135-145); Total Protein 7.2 g/dL (6.5-8.0); Triglycerides 155 mg/dL
[2021-04-03 14:22] LABS: Free T4 (Free Thyroxine) 0.86 ng/dL (0.71-1.85); Thyroid Stimulating Hormone 3.38 uIU/mL (0.32-4.0)
== END 2021-04-03 10:35 | disposition home or self-care (01) ==
LOC: HO.HMGCLDS 10:34
PROVIDERS: PCP Nurse Practitioner Family; Visit Provider Nurse Practitioner Gerontology
DX: E11.42 Type 2 diabetes mellitus with diabetic polyneuropathy (principal); E03.9 Hypothyroidism, unspecified
CPT/HCPCS: 36415; 80053; 80061; 82043; 83036; 84439; 84443

== ENCOUNTER → 2021-04-09 10:30 | Outpatient (BNVA) | payer OTHER, SELFPAY | PROVIDERS: PCP Nurse Practitioner Family; Visit Provider Nurse Practitioner Gerontology | DX: E11.42 Type 2 diabetes mellitus with diabetic polyneuropathy (principal); E78.5 Hyperlipidemia, unspecified | CPT/HCPCS: 82947; 99212 ==

== ENCOUNTER → 2021-07-23 10:17 | Outpatient (BNVA) | payer OTHER, SELFPAY | PROVIDERS: PCP Nurse Practitioner Family; Visit Provider Nurse Practitioner Gerontology | DX: E11.42 Type 2 diabetes mellitus with diabetic polyneuropathy (principal); E78.5 Hyperlipidemia, unspecified; E66.09 Other obesity due to excess calories; Z68.30 Body mass index [BMI] 30.0-30.9, adult | CPT/HCPCS: 82947; 83036; 99212 ==

== ENCOUNTER 2021-10-16 08:36 | Outpatient (REF) | payer OTHER, SELFPAY ==
[2021-10-16 11:30] LABS: Appearance Urine CLEAR; Color Urine YELLOW; Glucose Urine UA >=1000 MG/DL (NEG); Leukocyte Esterase Urine NEG (NEG); Nitrite Urine NEG (NEG); PH 5.5 (5.0-8.0); Urine Blood NEG (NEG); Urine Ketones NEG (NEG); Urine Protein NEG (NEG-TRACE)
[2021-10-16 11:42] LABS: MANUAL DIFF FLAG NO
[2021-10-16 12:07] LABS: Basophils Absolute Auto 0.1 X10*3/uL (0.0-0.2); Basophils Percent Auto 0.9 % (0-2); Eosinophils Absolute Auto 0.3 X10*3/uL (0.0-0.4); Eosinophils Percent Auto 5.1 % (0-4); Imm Gran Abs Auto 0.03 X10*3/uL (0.00-0.03); Imm Gran Pct Auto 0.5 % (0.0-0.4); Lymphocytes Absolute Auto 1.7 X10*3/uL (1.2-4.9); Lymphocytes Percent Auto 25.6 % (20-40); Mean Corpuscular HGB Conc 32.7 g/dl (31.0-36.0); Mean Corpuscular Volume 91.9 fL (80.0-98.0); Mean Platelet Volume 11.2 fL (9.4-12.4); Monocytes Absolute Auto 0.6 X10*3/uL (0.1-1.2); Monocytes Percent Auto 8.4 % (2-11); Neutrophils Absolute Auto 3.9 x10*3/uL (2.0-8.3); Neutrophils Percent Auto 59.5 % (45-73); Platelet Count 183 X10*3/uL (160-400); Red Blood Count 5.66 X10*6/uL (4.60-5.80); Red Cell Distribution Width 14.2 % (11.0-16.0); White Blood Count 6.5 X10*3/uL (4.8-10.8)
[2021-10-16 12:10] LABS: RBC Urine 0-2 /HPF (0); WBC Urine 0-2 /HPF (0-4)
[2021-10-16 12:19] LABS: Alanine Aminotransferase 31 U/L (0-40); Albumin Level 4.6 g/dL (3.5-5.0); Alkaline Phosphatase 99 U/L (39-117); Anion Gap 16 (12-20); Aspartate Amino Transferase 16 U/L (5-37); Bilirubin Total 0.7 mg/dL (0.0-1.0); Blood Urea Nitrogen 15 mg/dL (9-16); Calcium 9.5 mg/dL (8.4-10.2); Carbon Dioxide 28 mmol/L (22-29); Chloride 102 mmol/L (96-108); Cholesterol 119 mg/dL; Estimated Glomerular Filt Rate > 60; Glucose Fasting 171 mg/dL (60-99); HDL Cholesterol 27 mg/dL; LDL Cholesterol Calculated 59 mg/dl; Potassium 4.7 mmol/L (3.3-5.1); Sodium 141 mmol/L (135-145); Total Protein 7.2 g/dL (6.5-8.0); Triglycerides 168 mg/dL
[2021-10-16 12:36] LABS: Prostate Specific Antigen Scr 2.59 ng/mL (<0.05-4.0); TSH reflex Free T4 2.45 uIU/mL (0.32-4.0)
== END 2021-10-16 08:37 | disposition home or self-care (01) ==
LOC: HO.HMGCLDS 08:36
PROVIDERS: PCP Nurse Practitioner Family; Visit Provider Nurse Practitioner Family
DX: Z12.5 Encounter for screening for malignant neoplasm of prostate (principal); F32.9 Major depressive disorder, single episode, unspecified
CPT/HCPCS: 36415; 80053; 80061; 81001; 84153; 84443; 85025

== ENCOUNTER 2022-04-05 08:18 | Outpatient (REF) | payer OTHER, SELFPAY ==
[2022-04-05 11:14] LABS: MANUAL DIFF FLAG NO
[2022-04-05 11:52] LABS: Basophils Percent Auto 0.9 % (0-2); Eosinophils Absolute Auto 0.3 X10*3/uL (0.0-0.4); Eosinophils Percent Auto 5.6 % (0-4); Hematocrit 49.7 % (42.0-52.0); Hemoglobin 15.9 g/dl (14.0-18.0); Imm Gran Abs Auto 0.02 X10*3/uL (0.00-0.03); Imm Gran Pct Auto 0.5 % (0.0-0.4); Lymphocytes Absolute Auto 1.5 X10*3/uL (1.2-4.9); Lymphocytes Percent Auto 32.9 % (20-40); Mean Corpuscular Hemoglobin 30.2 pg (27.0-33.0); Mean Corpuscular Volume 94.5 fL (80.0-98.0); Mean Platelet Volume 11.5 fL (9.4-12.4); Monocytes Absolute Auto 0.4 X10*3/uL (0.1-1.2); Monocytes Percent Auto 9.5 % (2-11); Neutrophils Absolute Auto 2.3 x10*3/uL (2.0-8.3); Neutrophils Percent Auto 50.6 % (45-73); Platelet Count 174 X10*3/uL (160-400); Red Blood Count 5.26 X10*6/uL (4.60-5.80); Red Cell Distribution Width 14.7 % (11.0-16.0); White Blood Count 4.4 X10*3/uL (4.8-10.8)
[2022-04-05 12:00] LABS: Estimated Average Glucose 169 mg/dL; Hemoglobin A1c % 7.5 %
[2022-04-05 13:09] LABS: Alanine Aminotransferase 18 U/L (0-40); Albumin Level 4.3 g/dL (3.5-5.0); Alkaline Phosphatase 75 U/L (39-117); Anion Gap 13 (12-20); Aspartate Amino Transferase 13 U/L (5-37); Bilirubin Total 0.7 mg/dL (0.0-1.0); Blood Urea Nitrogen 12 mg/dL (9-16); Calcium 9.5 mg/dL (8.4-10.2); Carbon Dioxide 31 mmol/L (22-29); Chloride 101 mmol/L (96-108); Cholesterol 194 mg/dL; Estimated Glomerular Filt Rate > 60; Glucose Fasting 154 mg/dL (60-99); HDL Cholesterol 35 mg/dL; LDL Cholesterol Calculated 117 mg/dl; Potassium 4.2 mmol/L (3.3-5.1); Sodium 141 mmol/L (135-145); TSH reflex Free T4 2.09 uIU/mL (0.32-4.0); Total Protein 6.5 g/dL (6.5-8.0); Triglycerides 211 mg/dL
== END 2022-04-05 08:19 | disposition home or self-care (01) ==
LOC: HO.HMGCLDS 08:18
PROVIDERS: PCP Nurse Practitioner Family; Visit Provider Nurse Practitioner Family
DX: E11.42 Type 2 diabetes mellitus with diabetic polyneuropathy (principal)
CPT/HCPCS: 36415; 80053; 80061; 83036; 84443; 85025

== ENCOUNTER 2022-04-09 09:59 | Outpatient (REF) | payer OTHER, SELFPAY ==
[2022-04-09 13:15] LABS: Appearance Urine Clear; Color Urine Yellow; Glucose Urine UA >=1000 mg/dL (Negative); Leukocyte Esterase Urine Negative (Negative); Nitrite Urine Negative (Negative); PH 5.5 (5.0-9.0); Specific Gravity - Urine >= 1.030 (1.005-1.025); UMIC TRIGGER UACC YES; Urine Blood Negative (Negative); Urine Ketones Negative (Negative); Urine Protein Negative (Neg-Trace)
[2022-04-09 13:41] LABS: Bacteria Urine None Seen (None Seen); Hyaline Casts Urine 0-2 /LPF (0-2); RBC Urine 0-2 /HPF (0-2); Squamous Epithelial Cell Urine 0-2 /HPF (0-2); WBC Urine 0-5 /HPF (0-5)
== END 2022-04-09 10:00 | disposition home or self-care (01) ==
LOC: HO.HMGCLDS 09:59
PROVIDERS: PCP Nurse Practitioner Family; Visit Provider Nurse Practitioner Family
DX: F32.9 Major depressive disorder, single episode, unspecified (principal)
CPT/HCPCS: 81001

== ENCOUNTER 2022-07-26 08:44 | Outpatient (REF) | payer OTHER, SELFPAY ==
[2022-07-26 11:36] LABS: MANUAL DIFF FLAG NO
[2022-07-26 11:52] LABS: Appearance Urine Clear; Color Urine Yellow; Glucose Urine UA 100 mg/dL (Negative); Leukocyte Esterase Urine Negative (Negative); Nitrite Urine Negative (Negative); PH 5.5 (5.0-9.0); Specific Gravity - Urine 1.015 (1.005-1.025); Urine Blood Negative (Negative); Urine Ketones Negative (Negative); Urine Protein Negative (Neg-Trace)
[2022-07-26 11:56] LABS: Basophils Percent Auto 0.8 % (0-2); Eosinophils Absolute Auto 0.4 X10*3/uL (0.0-0.4); Hematocrit 47.5 % (42.0-52.0); Hemoglobin 15.5 g/dl (14.0-18.0); Imm Gran Abs Auto 0.02 X10*3/uL (0.00-0.03); Imm Gran Pct Auto 0.4 % (0.0-0.4); Lymphocytes Absolute Auto 1.4 X10*3/uL (1.2-4.9); Lymphocytes Percent Auto 30.2 % (20-40); Mean Corpuscular HGB Conc 32.6 g/dl (31.0-36.0); Mean Corpuscular Hemoglobin 30.1 pg (27.0-33.0); Mean Corpuscular Volume 92.2 fL (80.0-98.0); Monocytes Absolute Auto 0.4 X10*3/uL (0.1-1.2); Neutrophils Absolute Auto 2.5 x10*3/uL (2.0-8.3); Neutrophils Percent Auto 52.6 % (45-73); Platelet Count 123 X10*3/uL (160-400); Red Blood Count 5.15 X10*6/uL (4.60-5.80); Red Cell Distribution Width 14.1 % (11.0-16.0); White Blood Count 4.8 X10*3/uL (4.8-10.8)
[2022-07-26 12:17] LABS: Estimated Average Glucose 163 mg/dL; Hemoglobin A1c % 7.3 %
[2022-07-26 12:46] LABS: Alanine Aminotransferase 18 U/L (0-40); Albumin Level 4.3 g/dL (3.5-5.0); Alkaline Phosphatase 88 U/L (39-117); Anion Gap 12 (12-20); Aspartate Amino Transferase 15 U/L (5-37); Bilirubin Total 0.8 mg/dL (0.0-1.0); Blood Urea Nitrogen 13 mg/dL (9-16); Calcium 9.2 mg/dL (8.4-10.2); Carbon Dioxide 31 mmol/L (22-29); Chloride 102 mmol/L (96-108); Cholesterol 136 mg/dL; Estimated Glomerular Filt Rate > 60; Glucose Fasting 188 mg/dL (60-99); HDL Cholesterol 32 mg/dL; LDL Cholesterol Calculated 62 mg/dl; Potassium 4.2 mmol/L (3.3-5.1); Sodium 141 mmol/L (135-145); Total Protein 6.6 g/dL (6.5-8.0); Triglycerides 214 mg/dL
[2022-07-26 13:01] LABS: TSH reflex Free T4 3.17 uIU/mL (0.32-4.0)
== END 2022-07-26 08:45 | disposition home or self-care (01) ==
LOC: HO.HMGCLDS 08:44
PROVIDERS: PCP Nurse Practitioner Family; Visit Provider Nurse Practitioner Family
DX: E11.42 Type 2 diabetes mellitus with diabetic polyneuropathy (principal)
CPT/HCPCS: 36415; 80053; 80061; 81003; 83036; 84443; 85025

== ENCOUNTER 2022-07-29 11:25 | Outpatient (REF) | payer OTHER, SELFPAY ==
[2022-07-29 15:08] LABS: Microalbumin 24 Hour Urine < 5.0 mg/L
[2022-07-30 09:30] LABS: Total Volume 24 Hour Urine 2875 mL
== END 2022-07-29 11:26 | disposition home or self-care (01) ==
LOC: HO.HMGCLNP 11:25
PROVIDERS: PCP Nurse Practitioner Family; Visit Provider Nurse Practitioner Family
DX: E11.9 Type 2 diabetes mellitus without complications (principal)
CPT/HCPCS: 82043

== ENCOUNTER 2022-12-07 10:06 | Outpatient (AMB) | payer OTHER, SELFPAY ==
--- NOTE | 2022-12-07 10:32 | A.OFFPC_ITS ---
Vital Signs 12/07/22 10:33 Height 6 ft Weight 211 lb BMI 28.6 BP 114/66 Blood Pressure Location Rt brachial Position Sitting Pulse 71 Pulse Source Pulse Oximeter Pulse Oximetry (%) 97 Oxygen Delivery Method Room Air Intake Visit Reasons: Followup diabetes Allergies diclofenac Allergy (Intermediate, Verified 12/07/22 10:36) Itching Medication List - Last Reconciled 12/07/22 by Ozzie Rivera, CORRECTIONAL LIEUTENANT- atorvastatin 80 mg PO BEDTIME blood sugar diagnostic (FreeStyle Lite Strips) As directed blood-glucose meter (FreeStyle Lite Meter kit) As directed cholecalciferol (vitamin D3) (Vitamin D3) 50 mcg PO DAILY 90 days [Diabetic shoes & 3 pair inserts as directed] dulaglutide 1.5 mg (0.5 mL) subcut QWEEK empagliflozin 10 mg PO DAILY 30 days ferrous sulfate 325 mg PO DAILY glucagon (Glucagon Emergency Kit) 1 mg subcut Q20M PRN insulin glargine (Lantus Solostar U-100 Insulin) 56 units (0.56 mL) subcut BEDTIME lancets (FreeStyle Lancets) Tests 4X/day levothyroxine 25 mcg PO DAILY melatonin 3 mg PO BEDTIME PRN metformin 1,000 mg (2 x 500 mg) PO BID Novolog FlexPen U-100 Insulin (insulin aspart U-100) 6 units small meal, 8 unit medium and 10 unit large meal subcut 3 times a day; NS omeprazole 20 mg PO BID 90 days paroxetine HCl 60 mg (2 x 30 mg) PO QAM 90 days pioglitazone 30 mg PO DAILY 90 days sildenafil (pulm.hypertension) 20 mg PO DAILY tamsulosin 0.4 mg PO DAILY trazodone 50 mg PO BEDTIME PRN 30 days Tobacco use date assessed: 12/07/22 Last assessed Fall Risk: 12/07/22 Dental Screening Dental Screen Date: 12/07/22 Did you have a dental visit in the last 12 months?: Yes Did you have a dental problem in the last 6 months where you did not have access to dental care?: No Was dental information given to patient?: Patient has dentist HPI Followup diabetes HPI Details Pt is a diabetic, on a statin. A1c in office today is 6.8. Microalbumin is up to date. Denies polyuria, polydipsia, and neuropathy. Pt denies any signs and symptoms of hypoglycemia and does know how to correct it. Eye exam is up to date. Pt sees endo but does not have a follow up until February. Pt reports increased irritability. He reports becoming angry and snapping at people. Pt is currently taking paroxetine 60mg. Will add buspirone 7.5mg bid. Denies any SI and HI. PFS Medical History Cervical vertebral fusion Depression Diabetes Elevated cholesterol Hx of anxiety disorder Hyperlipidemia LDL goal <100 Hypothyroid Obesity due to excess calories Type 2 diabetes mellitus with polyneuropathy Surgical History H/O cervical discectomy H/O colonoscopy History of esophagogastroduodenoscopy (EGD) History of revision of total knee arthroplasty Hx of endoscopy Hx of shoulder surgery Hx of total knee arthroplasty Hx of ventral hernia repair Family History Father Heart attack Diabetes Mother Cancer Brother Diabetes Social History Household Members: Spouse Housing: House Alcohol intake: current Alcohol intake frequency: a few times a month Patient Tobacco Use Status: Former Tobacco user Quit Date: 1992 e-Cigarette/Vaping Use: Never Used Second Hand Smoke Exposure: No service: No Current occupational status: retired Cognitive needs: No Hearing needs: No Vision needs: No Questionnaire Thrive Questionnaire Date Thrive assessed: 01/05/22 FARHAN-7 AMB Questionnaire FARHAN-7 Date FARHAN - 7 assessed: 01/05/22 Source: Developed by Drs. Esteban Bolivar, Mabel Hernandes, Kenn Hardy and colleagues, with an educational mary from [employer]. Review of Systems Const Reports as per HPI Physical exam (Primary Care) Vital Signs: Last Vital Signs Pulse 71 12/07/22 10:33 BP 114/66 12/07/22 10:33 Pulse Ox 97 12/07/22 10:33 Oxygen Delivery Method Room Air 12/07/22 10:33 BMI result Body Mass Index 28.6 Tobacco/Smoking Status: Tobacco use Status Tobacco use date assessed 12/07/22 12/07/22 10:39 Patient Tobacco Use Status Former Tobacco user 12/07/22 10:33 e-Cigarette/Vaping Use Never Used 12/07/22 10:33 Thrive Assessment: Date of Thrive Assessment Date Thrive assessed 01/05/22 12/07/22 10:33 Const General: cooperative Orientation/consciousness: patient oriented x3 Resp Effort & Inspection: normal respiratory effort Auscultation: clear to auscultation bilaterally Cardio Rate: regular rate Rhythm: regular rhythm Heart sounds: S1 normal heart sound present and S2 normal heart sound present Neuro General: patient oriented x3 Extrem Other: bilat feet: + sensation with use of monofilament Psych Appearance: grossly normal Mental Status: mental status grossly normal Speech and movement: Normal speech and movement present Affect: normal affect Attitude: cooperative Thought process: Normal thought process present Thought content: Normal thought content present Insight: Good insight present (Psych) Judgement: Good judgement present (Psych) Results AMB Hemoglobin A1c AMB Hemoglobin A1c 6.8 % Last Edit by Marbella Irvin CMA on 12/07/22 10: 51 Results Reviewed Results Reviewed: Laboratory Last Values Hgb A1c (Clinic) 6.8 % (4.0-6.0) H 12/07/22 10:44 Assessment and Plan Assessment & Plan (1) Diabetes: Comment: type 2-taking lantus insulin/metformin/trulicity/jardiance Code(s): E11.9 - Type 2 diabetes mellitus without complications Plan: Labs ordered (2) Screening PSA (prostate specific antigen): Code(s): Z12.5 - Encounter for screening for malignant neoplasm of prostate Plan The patient agreed to the use of a diagnostic medical sonographer for this encounter. Scribed for [facility] by Nyla Martínez diagnostic medical sonographer, on 12/07/2022 at 10:45 EST. Orders: Orders Comprehensive [place]. Panel Fast Today E11.9 - Type 2 diabetes mellitus without complications Lipid Panel Today E11.9 - Type 2 diabetes mellitus without complications TSH reflex Free T4 Today E11.9 - Type 2 diabetes mellitus without complications Complete Blood Count Auto Diff Today E11.9 - Type 2 diabetes mellitus without complications UA CC w/rflx Micro + Cult Today E11.9 - Type 2 diabetes mellitus without complications Prostate Specific Antigen Scr Today Z12.5 - Encounter for screening for malignant neoplasm of prostate AMB Hemoglobin A1c Today E11.9 - Type 2 diabetes mellitus without complications Medications: New buspirone 7.5 mg PO BID 60 tabs 2RF 30 days Coding Level of Care Code Est Pt Level 3 (11562) Diagnoses Diabetes E11.9 Screening PSA (prostate specific antigen) Z12.5
[2022-12-07 10:33] VITALS: BP 114/66; PULSE 71; O2SAT 97; BMI 28.6
== END 2022-12-07 11:07 | disposition home or self-care (01) ==
PROVIDERS: Visit Provider Nurse Practitioner Family
DX: E11.9 Type 2 diabetes mellitus without complications (principal); Z12.5 Encounter for screening for malignant neoplasm of prostate
CPT/HCPCS: 83036; 99213

== ENCOUNTER 2022-12-07 11:08 | Outpatient (REF) | payer OTHER, SELFPAY ==
[2022-12-07 13:33] LABS: MANUAL DIFF FLAG NO
[2022-12-07 13:55] LABS: Appearance Urine Clear; Color Urine Yellow; Glucose Urine UA >=1000 mg/dL (Negative); Leukocyte Esterase Urine Negative (Negative); Nitrite Urine Negative (Negative); PH 5.5 (5.0-9.0); Specific Gravity - Urine >= 1.030 (1.005-1.025); UMIC TRIGGER UACC YES; Urine Blood Negative (Negative); Urine Ketones Trace mg/dL (Negative); Urine Protein Negative (Neg-Trace)
[2022-12-07 14:01] LABS: Bacteria Urine None Seen (None Seen); Hyaline Casts Urine 0-2 /LPF (0-2); RBC Urine 0-2 /HPF (0-2); Squamous Epithelial Cell Urine 0-2 /HPF (0-2); WBC Urine 0-5 /HPF (0-5)
[2022-12-07 14:06] LABS: Basophils Percent Auto 0.7 % (0-2); Eosinophils Absolute Auto 0.3 X10*3/uL (0.0-0.4); Eosinophils Percent Auto 5.5 % (0-4); Hematocrit 50.5 % (42.0-52.0); Hemoglobin 16.2 g/dl (14.0-18.0); Imm Gran Abs Auto 0.02 X10*3/uL (0.00-0.03); Imm Gran Pct Auto 0.3 % (0.0-0.4); Lymphocytes Absolute Auto 1.4 X10*3/uL (1.2-4.9); Lymphocytes Percent Auto 23.1 % (20-40); Mean Corpuscular HGB Conc 32.1 g/dl (31.0-36.0); Mean Corpuscular Hemoglobin 29.9 pg (27.0-33.0); Mean Corpuscular Volume 93.3 fL (80.0-98.0); Mean Platelet Volume 11.2 fL (9.4-12.4); Monocytes Absolute Auto 0.5 X10*3/uL (0.1-1.2); Monocytes Percent Auto 7.7 % (2-11); Neutrophils Absolute Auto 3.7 x10*3/uL (2.0-8.3); Neutrophils Percent Auto 62.7 % (45-73); Platelet Count 133 X10*3/uL (160-400); Red Blood Count 5.41 X10*6/uL (4.60-5.80); Red Cell Distribution Width 14.2 % (11.0-16.0)
[2022-12-07 14:16] LABS: Alanine Aminotransferase 16 U/L (0-40); Albumin Level 4.6 g/dL (3.5-5.0); Alkaline Phosphatase 79 U/L (39-117); Anion Gap 17 (12-20); Aspartate Amino Transferase 14 U/L (5-37); Bilirubin Total 0.6 mg/dL (0.0-1.0); Blood Urea Nitrogen 21 mg/dL (9-16); Calcium 10.1 mg/dL (8.4-10.2); Carbon Dioxide 28 mmol/L (22-29); Chloride 103 mmol/L (96-108); Cholesterol 142 mg/dL; Estimated Glomerular Filt Rate > 60; Glucose Fasting 113 mg/dL (60-99); HDL Cholesterol 39 mg/dL; LDL Cholesterol Calculated 80 mg/dl; Potassium 4.8 mmol/L (3.3-5.1); Sodium 143 mmol/L (135-145); Total Protein 7.4 g/dL (6.5-8.0); Triglycerides 115 mg/dL
[2022-12-07 14:23] LABS: Prostate Specific Antigen Scr 1.16 ng/mL (<0.05-4.0)
[2022-12-07 14:32] LABS: TSH reflex Free T4 2.15 uIU/mL (0.32-4.0)
== END 2022-12-07 11:09 | disposition home or self-care (01) ==
LOC: HO.HMGCLDS 11:08
PROVIDERS: PCP Nurse Practitioner Family; Visit Provider Nurse Practitioner Family
DX: Z12.5 Encounter for screening for malignant neoplasm of prostate (principal); E11.9 Type 2 diabetes mellitus without complications
CPT/HCPCS: 36415; 80053; 80061; 81001; 84153; 84443; 85025

== ENCOUNTER 2023-01-18 09:18 | Outpatient (AMB) | payer OTHER, SELFPAY ==
--- OUTSIDE RECORDS SUMMARY | 2023-01-18 09:19 | XMS_ITS | Continuity of Care Document ---
Author Name Unknown Organization [facility] ter Address [address] [place] [id number]- Care Team Providers Care Doctor Chiropractic Name Role Phone Miguel LONG, Ozzie Villar Primary Care Physician Encounter [facility] Date(s): 08/13/20 - 08/14/[address] [address]- Discharge Disposition: A-Transfer VNA/Home Health Attending Physician: Willy Chadwick MD Admitting Physician: Willy Chadwick MD Referring Physician: Willy Chadwick MD Allergies, Adverse Reactions, Alerts Substance Reaction Severity Status diclofenac itchiness Active Medications acetaminophen 325 mg oral tablet 650 mg, By Mouth, Every 6 hours, May take OTC, not to exceed 3000 mg/day, Refills 0, Maintenance, 08/14/20 8:14:00 EDT, Partial fill upon patient request if the prescription is for a schedule II opioid drug. Start Date: 08/14/20 Status: Ordered Acetaminophen Tablet 650 mg, Tablet, By Mouth, 08/14/20 6:00:00 EDT Start Date: 08/14/20 Stop Date: 08/14/20 Status: Completed Actos Tablet = 45 mg, By Mouth, Daily, 0 Refills, 01/31/08 1:54:14 EDT Start Date: 01/31/08 Status: Ordered Aspirin Tablet 325 mg, By Mouth, 2 times a day, Refills 0, Maintenance, 08/14/20 8:13:00 EDT, Partial fill upon patient request if the prescription is for a schedule II opioid drug. Start Date: 08/14/20 Status: Ordered atorvastatin 40 mg oral tablet 1 tablet = 40 mg, By Mouth, Daily, # 30 tablet, 0 Refills, Maintenance, 08/13/20 7:22:00 EDT, Tablet, Partial fill upon patient request if the prescription is for a schedule II opioid drug. Start Date: 08/13/20 Status: Ordered celecoxib 200 mg oral capsule 1 capsule = 200 mg, By Mouth, Daily in AM, 0 Refills, Maintenance, 08/14/20 8:15:00 EDT, Capsule, Partial fill upon patient request if the prescription is for a schedule II opioid drug. Start Date: 08/14/20 Status: Ordered Colace Capsule 100 mg, 1, capsule, By Mouth, 2 times a day, Hold for loose stools, Refills 0, Maintenance, 08/14/20 8:15:00 EDT, Partial fill upon patient request if the prescription is for a schedule II opioid drug. Start Date: 08/14/20 Status: Ordered fenofibrate 48 mg oral tablet 1 tablet = 48 mg, By Mouth, Daily, 0 Refills, Maintenance, 11/11/17 12:55:11 EDT Start Date: 11/11/17 Status: Ordered Freestyle Lite Lancets See Instructions, # 150 each, Refills 10, Tot. Refills 10, Maintenance, test BG 4x daily E11.9, 09/29/17 14:31:23 EDT, Compound Start Date: 09/29/17 Status: Ordered Freestyle Lite Monitor See Instructions, # 1 each, Maintenance, test BG 4x daily E11.9, 09/29/17 14:30:58 EDT, Compound Start Date: 09/29/17 Status: Ordered Freestyle Lite Test Strips See Instructions, # 150 each, Refills 10, Tot. Refills 10, Maintenance, test BG 4x daily E11.9, 09/29/17 14:31:03 EDT, Compound Start Date: 09/29/17 Status: Ordered GlipiZIDE = 5 mg, By Mouth, 2 times a day, 0 Refills, 01/31/08 1:55:33 EDT Start Date: 01/31/08 Status: Ordered Lantus Solostar Pen 100 units/mL subcutaneous solution = 60 units, Subcutaneous Infusion, Daily, # 30 mL, 0 Refills, Maintenance, 04/21/18 9:45:13 EST Start Date: 04/21/18 Stop Date: 05/21/18 Status: Ordered levothyroxine 0.075 mg oral tablet 0 Refills, Maintenance, 11/11/17 12:55:24 EDT Start Date: 11/11/17 Status: Ordered Lisinopril = 2.5 mg, By Mouth, Daily, 0 Refills, 01/31/08 1:53:53 EDT Start Date: 01/31/08 Status: Ordered Maalox Plus Liquid 30 mL, By Mouth, Every 4 hours, PRN Other, Heartburn, 0 Refills, Maintenance, 08/14/20 8:14:00 EDT,Suspension, Partial fill upon patient request if the prescription is for a schedule II opioid drug. Start Date: 08/14/20 Status: Ordered Melatonin = 2 mg, Daily at bedtime, 0 Refills, Maintenance, 11/11/17 12:55:37 EDT Start Date: 11/11/17 Status: Ordered Metformin = 1,000 mg, By Mouth, 2 times a day, 0 Refills, 01/31/08 1:52:34 EDT Start Date: 01/31/08 Status: Ordered Milk of Magnesia Liquid 30 mL, By Mouth, Daily, PRN Constipation, 0 Refills, Maintenance, 08/14/20 8:15:00 EDT, Suspension,Partial fill upon patient request if the prescription is for a schedule II opioid drug. Start Date: 08/14/20 Status: Ordered MiraLax Powder 1 pack/packet = 17 Gm, By Mouth, Daily, PRN Constipation, 0 Refills, Maintenance, 08/14/20 8:15:00 EDT, Powder, Partial fill upon patient request if the prescription is for a schedule II opioid drug. Start Date: 08/14/20 Status: Ordered Nexium Capsule 40 mg, By Mouth, Daily, Refills 0, Tot. Refills 0, 01/31/08 1:53:28 EDT Start Date: 01/31/08 Status: Ordered NovoLog Inj Subcutaneous Infusion, 3 times a day before meals, 0 Refills, Maintenance, 11/11/17 12:55:55 EDT Start Date: 11/11/17 Status: Ordered OneTouch Verio Test Strips See Instructions, # 150 application, Refills 11, Tot. Refills 11, Maintenance, Total blood glucose 4 times daily for diabetes mellitus type 2 DX: E11.42, 09/16/17 17:10:22 EDT, Compound Start Date: 09/16/17 Status: Ordered oxyCODONE 5 mg oral tablet See Instructions, PRN, Take 1-2 tablets every 4 hours as needed for pain x 7 days., # 84 tablet, Refills 0, Tot. Refills 0, Acute 08/21/20 8:00:00 EDT, Pain , Moderate, 08/14/20 8:04:00 EDT, Instructions Replace Required Details, Route to Pharmacy Adriane... Start Date: 08/14/20 Stop Date: 08/21/20 Status: Ordered OxyCODONE IR Tablet 10 mg, Tablet, By Mouth, Every 4 hours, PRN for Pain , Severe, Routine, 08/13/20 11:27:00 EDT Start Date: 08/13/20 Stop Date: 08/14/20 Status: Discontinued Paroxetine = 40 mg, By Mouth, Daily, 0 Refills, 01/31/08 1:53:04 EDT Start Date: 01/31/08 Status: Ordered senna 187 mg oral tablet 1 tablet = 8.6 mg, By Mouth, Daily at bedtime, PRN as needed for constipation, 0 Refills, Maintenance, 08/14/20 8:15:00 EDT, Tablet, Partial fill upon patient request if the prescription is for a schedule II opioid drug. Start Date: 08/14/20 Status: Ordered tamsulosin 0.4 mg oral capsule 0.4 mg, 1, capsule, By Mouth, Daily, Refills 0, Maintenance, 11/11/17 12:56:10 EDT Start Date: 11/11/17 Status: Ordered Problem List Condition Effective Dates Status Health Status Inform ant *[phone]-Care Partn margarito Corley(Confirmed) Active Results Radiology Reports * Exam Date Time Procedure Performing Provider Status 08/13/20 11:32 AM Knee 1 or 2 Views Right Ciarra Cordon sa; Auth (Verified) Notes: (Knee 1 or 2 Views Right) Reason For Exam: rt knee revision - failed hardware arthroplasty RESULT: Knee 1 or 2 Views Right Knee 1 or 2 Views Right, 2 views INDICATION: Status post right knee revision arthroplasty for replacement of polyethylene liner. COMPARISON: No recent prior imaging available. FINDINGS: Status post total knee arthroplasty. The prosthetic joint is well aligned. No intra-articular loose bodies. Severe patellofemoral joint space narrowing. There is sclerosis around the tibial and femoral prosthetic components. No evidence of joint effusion. Surgical sutures present at the popliteal region. Skin timothy present anterior to the knee. IMPRESSION: Status post revision of total knee arthroplasty. No acute findings. I have personally reviewed the images and I agree with this report. WSN: [id number] Ordering Physician: Farrukh Willy Brice Dictated By: Sanket[Radiology] Maria Dolores CARPIO Dictated Date/Time: 08/13/20 3:15 pm Reviewed By: Lennox Carter MD Signed By: Lennox Carter MD Signed Date/Time: 08/13/20 3:20 pm Transcribed By: MARILEE Transcribed Date/Time: 08/13/20 1:47 pm Vital Signs Most recent to oldest [Reference Range]: 1 2 3 4 Height 183 cm (08/14/20 6:56 AM) 183 cm (08/14/20 4:32 AM) 183 cm (08/14/20 12:14 AM) Weight 102.4 kg (08/13/20 8:02 AM) 102.4 kg (08/13/20 6:46 AM) Oxygen Saturation [94-100 %] 100 % (08/14/20 6:56 AM) 98 % (08/14/20 4:32 AM) 98 % (08/14/20 12:14 AM) Pulse Rate [55-90 bpm] 62 bpm (08/14/20 6:56 AM) 63 bpm (08/14/20 4:32 AM) 61 bpm (08/14/20 12:14 AM) Body Mass Index [18.5-24.99] 30.58 *>HHI* (08/13/20 8:02 AM) 30.58 *>HHI* (08/13/20 6:46 AM) Blood Pressure [90-138/55-84 mm Hg] 115/64mm Hg (08/14/20 6:56 AM) 101/58mm Hg (08/14/20 4:32 AM) 111/65mm Hg (08/14/20 12:14 AM) Respiratory Rate [16-30 br/min] 16 br/min (08/14/20 10:32 AM) 20 br/min (08/14/20 6:56 AM) 18 br/min (08/14/20 5:31 AM) 18 br/min (08/14/20 5:31 AM) Temperature [96.8-100.4 DegF] 97.4 DegF (08/14/20 6:56 AM) 98.1 DegF (08/14/20 4:32 AM) 97.6 DegF (08/14/20 12:14 AM) Liters per Minute 3 L/min (08/13/20 9:05 AM) 3 L/min (08/13/20 9:00 AM) 3 L/min (08/13/20 8:55 AM) Mode of Delivery (Oxygen) Room air (08/14/20 6:56 AM) Room air (08/14/20 4:32 AM) Room air (08/14/20 12:14 AM) Blood pressure sites Arm, left (08/14/20 6:56 AM) Arm, right (08/14/20 4:32 AM) Arm, right (08/14/20 12:14 AM) Temperature Route Oral (08/14/20 6:56 AM) Oral (08/14/20 4:32 AM) Oral (08/14/20 12:14 AM) Dry Weight 102.4 kg (08/13/20 6:46 AM) Social History Social History Type Response Smoking Status Former smoker; Type: Cigarettes; Number of years: 13; entered on: 09/02/17 Sex
--- OUTSIDE RECORDS SUMMARY | 2023-01-18 09:19 | XMS_ITS | Continuity of Care Document ---
Author Name Unknown Organization [facility] ter Address [address] [place] [id number]- Care Team Providers Care Java Technical Manager Name Role Phone Miguel LONG, Ozzie Villar Primary Care Physician [phone] Encounter [facility] Date(s): 07/16/20 - 08/21/[address] [address]- Attending Physician: Willy Chadwick MD Admitting Physician: [...] opioid drug. Start Date: 08/14/20 Status: Ordered Actos Tablet = 45 mg, By Mouth, [...] 12:55:55 EDT Start Date: 11/11/17 Status: Ordered Verax [employer] Verio Test Strips See Instructions, # 150 application, Refills 11, Tot. Refills 11, Maintenance, Total blood glucose 4 times daily for diabetes mellitus type 2 DX: E11.42, 09/16/17 17:10:22 EDT, Compound Start Date: 09/16/17 Status: Ordered Paroxetine = 40 mg, By Mouth, Daily, [...] Effective Dates Status Health Status Inform ant *[phone]-Care Partn margarito Corley(Confirmed) Active Social History Social History Type Response Smoking Status Former smoker; Type: Cigarettes; Number of years: 13; entered on: 09/02/17 Sex
--- OUTSIDE RECORDS SUMMARY | 2023-01-18 09:19 | XMS_ITS | Continuity of Care Document ---
Author Name Unknown Organization [facility] ter Address [address] [place] [id number]- Care Team Providers Care Steam Flattener Name Role Phone Miguel LONG, Ozzie Villar Primary Care Physician Encounter [facility] [place] Date(s): 08/13/20 - 09/12/[address] [address]- Attending Physician: Not on Staff, Attending MD Admitting Physician: Not on Staff, Admitting MD Referring Physician: Not on Staff, Referring MD Allergies, Adverse Reactions, Alerts Substance Reaction [...] 12:55:55 EDT Start Date: 11/11/17 Status: Ordered [email or web address] Verio Test Strips See Instructions, # 150 [...] Effective Dates Status Health Status Inform ant *[phone] Partn margarito Corley(Confirmed) Active Social History Social History Type Response Smoking Status Former smoker; Type: Cigarettes; Number of years: 13; entered on: 09/02/17 Sex
--- OUTSIDE RECORDS SUMMARY | 2023-01-18 09:19 | XMS_ITS | Continuity of Care Document ---
Author Name Unknown Organization [facility] ter Address [address] [place] [id number]- Care Team Providers Care Candle Cutter Name Role Phone Miguel LONG, Ozzie Villar Primary Care Physician [phone] Encounter [facility] [place] Date(s): 07/22/20 - 08/21/[address] [address]- Attending Physician: Frank Woodruff Admitting Physician: AdmFrank wright Referring Physician: AdmtrFrank Allergies, Adverse Reactions, Alerts Substance Reaction Severity [...] 12:55:55 EDT Start Date: 11/11/17 Status: Ordered First Insightuch Verio Test Strips See Instructions, # 150 [...] Effective Dates Status Health Status Inform ant *[phone] Partn margarito Corley(Confirmed) Active Social History Social History Type Response Smoking Status Former smoker; Type: Cigarettes; Number of years: 13; entered on: 09/02/17 Sex
--- OUTSIDE RECORDS SUMMARY | 2023-01-18 09:19 | XMS_ITS | Continuity of Care Document ---
Author Name Unknown Organization [facility] Address [address] [place] [id number]- Care Team Providers Care Service Observer Chief Name Role Phone Miguel LONG, Ozzie Villar Primary Care Physician Encounter 08/15/20 - 08/29/20 [facility] Nurse [facility] [place] [facility] [address] [place] [id number]- Discharge Disposition: GOALS MET Allergies, Adverse Reactions, Alerts Substance Reaction Severity [...] Effective Dates Status Health Status Inform ant *[phone] Partn margarito Corley(Confirmed) Active Social History Social History Type Response Smoking Status Former smoker; Type: Cigarettes; Number of years: 13; entered on: 09/02/17 Sex
[2023-01-18 10:47] VITALS: BP 130/70; PULSE 72; TEMP 36.2; O2SAT 98; BMI 28.5
--- NOTE | 2023-01-18 10:47 | MHC.OFFWIV ---
Intake Vital Signs 01/18/23 10:47 Height 6 ft Weight 210 lb 4 oz BMI 28.5 BP 130/70 Blood Pressure Location Lt brachial Position Sitting Pulse 72 Pulse Source Pulse Oximeter Temp 97.2 F Temp Source Temporal Artery Scan Pulse Oximetry (%) 98 Oxygen Delivery Method Room Air Intake Visit Reasons: EST/right side face redness Intake Note: Pt is here c/o rash on his face for 3 days. Patient Tobacco Use Status: Former Tobacco user Quit Date: 1992 Allergies diclofenac Allergy (Intermediate, Verified 01/18/23 11:24) Itching Medication List - Last Reconciled 01/18/23 by Vladimir Brush MD atorvastatin 80 mg PO BEDTIME 90 days blood sugar diagnostic (True Metrix Glucose Test Strip) Use to check blood sugar 4 times a day or with symptoms of hypo/hyperglycemia blood-glucose sensor (FreeStyle Clem 3 Sensor device) Use to monitor blood sugars daily buspirone 7.5 mg PO BID 30 days cholecalciferol (vitamin D3) (Vitamin D3) 50 mcg PO DAILY 90 days [Diabetic shoes & 3 pair inserts as directed] dulaglutide 1.5 mg (0.5 mL) subcut QWEEK empagliflozin 10 mg PO DAILY ferrous sulfate 325 mg PO DAILY glucagon (Glucagon Emergency Kit) 1 mg subcut Q20M PRN insulin glargine (Lantus Solostar U-100 Insulin) 56 units (0.56 mL) subcut BEDTIME lancets (FreeStyle Lancets) Tests 4X/day levothyroxine 25 mcg PO DAILY melatonin 3 mg PO BEDTIME PRN metformin 1,000 mg (2 x 500 mg) PO BID Novolog FlexPen U-100 Insulin (insulin aspart U-100) 6 units small meal, 8 unit medium and 10 unit large meal subcut 3 times a day; NS omeprazole 20 mg PO BID 90 days paroxetine HCl 60 mg (2 x 30 mg) PO QAM 90 days pen needle, diabetic (Comfort EZ Pen [place]) Use to administer insulin QID pioglitazone 30 mg PO DAILY 90 days prednisone 60 mg (3 x 20 mg) PO DAILY sildenafil (pulm.hypertension) 20 mg PO DAILY tamsulosin 0.4 mg PO DAILY trazodone 50 mg PO BEDTIME PRN 30 days Do you need a note to return to daycare/school/sports/work: No HPI EST/right side face redness HPI Details 67-year-old male presents to the office for a sick visit. Patient has a rash on the face. Symptoms started yesterday. PFSH Medical History (Reviewed 12/07/22 @ 12:29 by YANICK MendezEN[facility]) Cervical vertebral fusion Depression Diabetes Elevated cholesterol Hx of anxiety disorder Hyperlipidemia LDL goal <100 Hypothyroid Obesity due to excess calories Type 2 diabetes mellitus with polyneuropathy Surgical History H/O cervical discectomy H/O colonoscopy History of esophagogastroduodenoscopy (EGD) History of revision of total knee arthroplasty Hx of endoscopy Hx of shoulder surgery Hx of total knee arthroplasty Hx of ventral hernia repair Family History Father Heart attack Diabetes Mother Cancer Brother Diabetes Social History Household Members: Spouse Housing: House Alcohol intake: current Alcohol intake frequency: a few times a month Patient Tobacco Use Status: Former Tobacco user Quit Date: 1992 e-Cigarette/Vaping Use: Never Used Second Hand Smoke Exposure: No service: No Current occupational status: retired Cognitive needs: No Hearing needs: No Vision needs: No Physical Exam Vital Signs: Last Vital Signs Temp 97.2 F 01/18/23 10:47 Pulse 72 01/18/23 10:47 BP 130/70 01/18/23 10:47 Pulse Ox 98 01/18/23 10:47 Oxygen Delivery Method Room Air 01/18/23 10:47 BMI result Body Mass Index 28.5 Skin Other: Face: Erythematous rash on the right side of the face. Nonvesicular. Assessment & Plan Assessment & Plan (1) Rash: Code(s): R21 - Rash and other nonspecific skin eruption Plan: Prednisone called in. If symptoms do not improve to follow-up here. Medications: New prednisone 60 mg (3 x 20 mg) PO DAILY 9 tabs 0RF Coding Level of Care Code Est Pt Level 3 ([address]) Diagnoses Rash R21
== END 2023-01-18 11:35 | disposition home or self-care (01) ==
PROVIDERS: PCP Nurse Practitioner Family; Visit Provider Internal Medicine
DX: R21 Rash and other nonspecific skin eruption (principal)
CPT/HCPCS: 99213

== ENCOUNTER 2023-05-03 07:28 | Outpatient (AMB) | payer OTHER, SELFPAY ==
--- NOTE | 2023-05-03 07:02 | MHC.PC.OV ---
Intake Visit Reasons: discuss meds-Android Allergies diclofenac Allergy (Intermediate, Verified 01/18/23 11:24) Itching Tobacco use date assessed: 12/07/22 HPI discuss meds-Android HPI Details Pt is a diabetic, on a statin. Last A1C was 6.8, due for repeat. Microalbumin is up to date. Denies polyuria, polydipsia, and neuropathy. Pt denies any signs and symptoms of hypoglycemia and does know how to correct it. Eye exam is up to date. Pt will be seeing endo in July. Pt reports that buspirone causes excessive sweating. Pt does not think he needs this med anymore and will wean off of this. Denies any SI and HI. REPLACED BY [facility] Medical History (Updated 05/03/23 @ 07:06 by YANICK Mendez-REENA) Obesity due to excess calories Type 2 diabetes mellitus with polyneuropathy Hyperlipidemia LDL goal <100 Hypothyroid Diabetes Hx of anxiety disorder Depression Elevated cholesterol Cervical vertebral fusion Surgical History Hx of endoscopy Hx of shoulder surgery History of esophagogastroduodenoscopy (EGD) H/O colonoscopy Hx of ventral hernia repair History of revision of total knee arthroplasty Hx of total knee arthroplasty H/O cervical discectomy Family History Father Heart attack Diabetes Mother Cancer Brother Diabetes Social History Household Members: Spouse Housing: House Alcohol intake: current Alcohol intake frequency: a few times a month Patient Tobacco Use Status: Former Tobacco user Quit Date: 1992 e-Cigarette/Vaping Use: Never Used Second Hand Smoke Exposure: No service: No Current occupational status: retired Cognitive needs: No Hearing needs: No Vision needs: No Questionnaire Thrive Questionnaire Date Thrive assessed: 01/05/22 FARHAN-7 AMB Questionnaire FARHAN-7 Date FARHAN - 7 assessed: 01/05/22 Source: Developed by Drs. Esteban Bolivar, Mabel Hernandes, Kenn Hardy and colleagues, with an educational mary from [employer]. Review of Systems Const Reports as per HPI Physical exam (Primary Care) Tobacco/Smoking Status: Tobacco use Status Tobacco use date assessed 12/07/22 05/03/23 07:07 Patient Tobacco Use Status Former Tobacco user 05/03/23 07:07 e-Cigarette/Vaping Use Never Used 05/03/23 07:07 Thrive Assessment: Date of Thrive Assessment Date Thrive assessed 01/05/22 05/03/23 07:07 Const General: cooperative Orientation/consciousness: patient oriented x3 Neuro General: patient oriented x3 Psych Appearance: grossly normal Mental Status: mental status grossly normal Speech and movement: Clear speech present Affect: normal affect Attitude: cooperative Thought process: Normal thought process present Thought content: Normal thought content present Insight: Good insight present (Psych) Judgement: Good judgement present (Psych) Telehealth Telehealth Location of provider rendering services: practice address Location of patient: address on file Patient Identification confirmed using: Name, : Yes Telehealth method: video Patient verbally consented to treatment: Yes Patient verbally consented to billing insurance company: Yes Patient informed of any privacy concerns related to visit: Yes Minutes spent on Phone/Video with Pt.: 10 Assessment and Plan Assessment & Plan (1) Diabetes: Comment: type 2-taking lantus insulin/metformin/trulicity/jardiance Code(s): E11.9 - Type 2 diabetes mellitus without complications (2) Hx of anxiety disorder: Code(s): Z86.59 - Personal history of other mental and behavioral disorders Plan The patient agreed to the use of a medical certification specialist for this encounter. Scribed for SAM Wren by Nyla Martínez medical certification specialist, on 05/03/2023 at 07:05 EST. Orders: Orders Complete Blood Count Auto Diff Today E11.9 - Type 2 diabetes mellitus without complications UA CC w/rflx Micro + Cult Today E11.9 - Type 2 diabetes mellitus without complications Hemoglobin A1c Today E11.9 - Type 2 diabetes mellitus without complications Microalbumin, Random (w Creat) Today E11.9 - Type 2 diabetes mellitus without complications Comprehensive [place]. Panel Fast Today E11.9 - Type 2 diabetes mellitus without complications TSH reflex Free T4 Today E11.9 - Type 2 diabetes mellitus without complications Lipid Panel Today E11.9 - Type 2 diabetes mellitus without complications Coding Level of Care Code Tele Est Pt Level 3 ([address]401) Diagnoses Diabetes E11.9 Hx of anxiety disorder Z86.59
== END 2023-05-03 13:36 | disposition home or self-care (01) ==
LOC: HO.HMGC 07:28
PROVIDERS: PCP Nurse Practitioner Family; Visit Provider Nurse Practitioner Family
DX: E11.9 Type 2 diabetes mellitus without complications (principal); Z86.59 Personal history of other mental and behavioral disorders
CPT/HCPCS: 99213

== ENCOUNTER 2023-07-27 07:56 | Outpatient (REF) | payer OTHER, SELFPAY ==
[2023-07-27 11:29] LABS: Appearance Urine Clear; Color Urine Yellow; Glucose Urine UA >=1000 mg/dL (Negative); Leukocyte Esterase Urine Negative (Negative); Nitrite Urine Negative (Negative); Specific Gravity - Urine >= 1.030 (1.005-1.025); UMIC TRIGGER UACC YES; Urine Blood Negative (Negative); Urine Ketones Negative (Negative); Urine Protein Negative (Neg-Trace)
[2023-07-27 11:35] LABS: Bacteria Urine None Seen (None Seen); Hyaline Casts Urine 0-2 /LPF (0-2); MANUAL DIFF FLAG NO; RBC Urine 0-2 /HPF (0-2); Squamous Epithelial Cell Urine 0-2 /HPF (0-2); WBC Urine 0-5 /HPF (0-5)
[2023-07-27 11:43] LABS: Basophils Percent Auto 0.8 % (0-2); Eosinophils Absolute Auto 0.3 X10*3/uL (0.0-0.4); Eosinophils Percent Auto 5.7 % (0-4); Hematocrit 47.9 % (42.0-52.0); Hemoglobin 15.6 g/dl (14.0-18.0); Imm Gran Abs Auto 0.02 X10*3/uL (0.00-0.03); Imm Gran Pct Auto 0.4 % (0.0-0.4); Lymphocytes Absolute Auto 1.6 X10*3/uL (1.2-4.9); Lymphocytes Percent Auto 33.1 % (20-40); Mean Corpuscular HGB Conc 32.6 g/dl (31.0-36.0); Mean Corpuscular Hemoglobin 30.2 pg (27.0-33.0); Mean Corpuscular Volume 92.8 fL (80.0-98.0); Mean Platelet Volume 10.9 fL (9.4-12.4); Monocytes Absolute Auto 0.4 X10*3/uL (0.1-1.2); Monocytes Percent Auto 8.9 % (2-11); Neutrophils Absolute Auto 2.4 x10*3/uL (2.0-8.3); Neutrophils Percent Auto 51.1 % (45-73); Platelet Count 167 X10*3/uL (160-400); Red Blood Count 5.16 X10*6/uL (4.60-5.80); Red Cell Distribution Width 14.7 % (11.0-16.0); White Blood Count 4.7 X10*3/uL (4.8-10.8)
[2023-07-27 11:54] LABS: Estimated Average Glucose 151 mg/dL; Hemoglobin A1c % 6.9 % (<6.0)
[2023-07-27 12:28] LABS: Creatinine Urine 57.57 mg/dL; Microalbum/Creatinine Ratio Ur 8.6 ug/mg cr (<30)
[2023-07-27 12:36] LABS: Alanine Aminotransferase 23 U/L (0-40); Albumin Level 4.3 g/dL (3.5-5.0); Alkaline Phosphatase 96 U/L (39-117); Anion Gap 12 (12-20); Aspartate Amino Transferase 14 U/L (5-37); Bilirubin Total 0.6 mg/dL (0.0-1.0); Blood Urea Nitrogen 15 mg/dL (9-16); Calcium 9.5 mg/dL (8.4-10.2); Carbon Dioxide 30 mmol/L (22-29); Chloride 104 mmol/L (96-108); Cholesterol 120 mg/dL (<200); Estimated Glomerular Filt Rate > 60; Glucose Fasting 146 mg/dL (60-99); HDL Cholesterol 38 mg/dL (>40); LDL Cholesterol Calculated 66 mg/dL (<100); Potassium 4.1 mmol/L (3.3-5.1); Sodium 142 mmol/L (135-145); TSH reflex Free T4 3.32 uIU/mL (0.32-4.0); Total Protein 6.9 g/dL (6.5-8.0); Triglycerides 83 mg/dL (<150)
== END 2023-07-27 07:57 | disposition home or self-care (01) ==
LOC: HO.HMGCLDS 07:56
PROVIDERS: PCP Nurse Practitioner Family; Visit Provider Nurse Practitioner Family
DX: E11.9 Type 2 diabetes mellitus without complications (principal); E03.9 Hypothyroidism, unspecified; D64.9 Anemia, unspecified; D69.6 Thrombocytopenia, unspecified
CPT/HCPCS: 36415; 80053; 80061; 81001; 82043; 82570; 83036; 84443; 85025

== ENCOUNTER 2023-10-04 13:53 | Outpatient (AMB) | payer OTHER, SELFPAY ==
[2023-10-04 14:10] VITALS: BP 114/62; PULSE 69; O2SAT 96; BMI 27.7
--- NOTE | 2023-10-04 14:10 | A.OFFPC_ITS ---
Vital Signs 10/04/23 14:10 Height 6 ft Weight 204 lb BMI 27.7 BP 114/62 Blood Pressure Location Lt brachial Position Sitting Pulse 69 Pulse Source Pulse Oximeter Pulse Oximetry (%) 96 Oxygen Delivery Method Room Air Intake Visit Reasons: PE Intake Note: Pt is here today for PE. Allergies diclofenac Allergy (Intermediate, Verified 10/04/23 16:29) Itching Medication List - Last Reconciled 10/04/23 by AMBER MendezP- atorvastatin 80 mg PO BEDTIME 90 days blood sugar diagnostic (True Metrix Glucose Test Strip) Use to check blood sugar 4 times a day or with symptoms of hypo/hyperglycemia blood-glucose sensor (FreeStyle Clem 3 Sensor device) Use to monitor blood sugars daily buspirone 7.5 mg PO BID 30 days cholecalciferol (vitamin D3) (Vitamin D3) 50 mcg PO DAILY 90 days [Diabetic shoes & 3 pair inserts as directed] empagliflozin 10 mg PO DAILY ferrous sulfate 325 mg PO DAILY glucagon (Glucagon Emergency Kit) 1 mg subcut Q20M PRN insulin glargine (Lantus Solostar U-100 Insulin) 56 units (0.56 mL) subcut BEDTIME lancets (FreeStyle Lancets) Tests 4X/day levothyroxine 25 mcg PO DAILY melatonin 3 mg PO BEDTIME PRN metformin 1,000 mg (2 x 500 mg) PO BID Novolog FlexPen U-100 Insulin (insulin aspart U-100) 6 units small meal, 8 unit medium and 10 unit large meal subcut 3 times a day; NS omeprazole 20 mg PO BID 90 days paroxetine HCl 60 mg (2 x 30 mg) PO QAM 90 days pen needle, diabetic (Comfort EZ Pen [place]) Use to administer insulin QID pioglitazone 30 mg PO DAILY 90 days semaglutide (Ozempic) 0.5 mg (0.736 mL) subcut QWEEK sildenafil (pulm.hypertension) 20 mg PO DAILY tamsulosin 0.4 mg PO DAILY trazodone 50 mg PO BEDTIME PRN 30 days Tobacco use date assessed: 10/04/23 Fall risk assessment: No Falls in past year Last assessed Fall Risk: 10/04/23 Dental Screening Dental Screen Date: 10/04/23 Did you have a dental visit in the last 12 months?: Yes Did you have a dental problem in the last 6 months where you did not have access to dental care?: No Was dental information given to patient?: Patient has dentist HPI PE HPI Details Pt is here for a PE. Will order labs. Colon screen is up to date. PSA is up to date. Pt is a diabetic, on a statin. Last A1C was 6.9. Microalbumin is up to date. Denies polyuria, polydipsia, and neuropathy. Pt denies any signs and symptoms of hypoglycemia and does know how to correct it. Pt reports that ozempic has been causing upset stomach. Will send mounjaro 2.5mg. Eye exam is up to date. Pt c/o insomnia. He has been taking trazodone 100mg which has not been helpful. Will increase to 200mg. Pt is seeing endo for his diabetes as well. [facility] Medical History Obesity due to excess calories Type 2 diabetes mellitus with polyneuropathy Hyperlipidemia LDL goal <100 Hypothyroid Diabetes Hx of anxiety disorder Depression Elevated cholesterol Cervical vertebral fusion Surgical History Hx of endoscopy Hx of shoulder surgery History of esophagogastroduodenoscopy (EGD) H/O colonoscopy Hx of ventral hernia repair History of revision of total knee arthroplasty Hx of total knee arthroplasty H/O cervical discectomy Family History Father Heart attack Diabetes Mother Cancer Brother Diabetes Social History Household Members: Spouse Housing: House Alcohol intake: current Alcohol intake frequency: a few times a month Patient Tobacco Use Status: Former Tobacco user Quit Date: 1992 e-Cigarette/Vaping Use: Never Used Second Hand Smoke Exposure: No service: No Current occupational status: retired Cognitive needs: No Hearing needs: No Vision needs: No Questionnaire PHQ-9 Over the last 2 weeks, how often have you been bothered by any of the following problems? 1. Little interest or pleasure in doing things: several days 2. Feeling down, depressed, or hopeless: not at all 3. Trouble falling or staying asleep, or sleeping too much: nearly every day 4. Feeling tired or having little energy: several days 5. Poor appetite or overeating: several days 6. Feeling bad about yourself - or that you are a failure or have let yourself or your family down: not at all 7. Trouble concentrating on things, such as reading the newspaper or watching television: not at all 8. Moving or speaking so slowly that other people could have noticed. Or the opposite - being so fidgety or restless that you have been moving around a lot more than usual: several days 9. Thoughts that you would be better off or of hurting yourself in some way: not at all Total score: 7 Depression Screening Interpretation: Negative Depression Screening Done: Yes Source: Developed by Drs. Esteban Bolivar, Mabel Hernandes, Kenn Hardy and colleagues, with an educational mary from [employer]. Thrive Questionnaire Date Thrive assessed: 10/04/23 I am a: Patient What is your living situation today?: I have a steady place to live Within the past 12 months, did the food you bought not last and you didn't have the money to get more?: Never true Within the past 12 months, did you worry whether your food would run out before you got money to buy more?: Never true Do you have trouble paying for medicines?: No Do you have trouble getting transportation to medical appointments?: No Do you have trouble paying your heating and electricity bill?: No Do you have trouble taking care of your child, family member or friend?: No Do you have trouble with day-to-day activities such as bathing, preparing meals, shopping, managing finances, etc.?: No Are you currently unemployed and looking for a job?: No Are you interested in more education?: No Please select the resources that you would like help with: None THRIVE Score: 0 AUDIT C Alcohol Use Questionnaire (AUDIT-C) 1. How often do you have a drink containing alcohol?: 2-4 times a month 2. How many drinks containing alcohol do you have on a typical day when you are drinking?: 1 or 2 3. How often do you have six or more drinks on one occasion?: Never Total Score: 2 FARHAN-7 AMB Questionnaire FARHAN-7 Date FARHAN - 7 assessed: 10/04/23 Feeling nervous, anxious, or on edge: 2 = More than half the days Not being able to stop or control worryin = More than half the days Worrying too much about different things: 1 = Several days Trouble relaxin = Nearly every day Being so restless that it is hard to sit still: 2 = More than half the days Becoming easily annoyed or irritable: 1 = Several days Feeling afraid as if something awful might happen: 1 = Several days Total FARHAN-7 score (0-4 normal; 5-9 mild; 10-14 moderate; 15-21 severe): 12 Source: Developed by Drs. Esteban Bolivar, Mabel Hernandes, Kenn Hardy and colleagues, with an educational mary from [employer]. FARHAN-7 Assessment Billing FARHAN-7 Assessment Tool: FARHAN-7 Assessment 95309 Review of Systems Const Denies chills and Denies fever(s) Eyes Denies blurry vision ENT Denies vertigo, Denies dizziness and Denies sore throat Card Denies chest pain at rest, Denies chest pain with activity, Denies diaphoresis, Denies dyspnea and Denies dyspnea on exertion Resp Denies cough, Denies dyspnea, Denies dyspnea on exertion and Denies wheezing GI Denies abdominal pain, Denies melena, Denies hematochezia, Denies constipation, Denies diarrhea and Denies loose stools Denies hematuria Musc Denies numbness and Denies tingling Skin/Breast Denies lesions Neuro Denies vertigo, Denies dizziness, Denies numbness and Denies tingling Psych Denies anxiety, Denies depression, Denies homicidal ideation, Denies suicidal ideation and Denies other (substance abuse) Aller/Immun Denies wheezing Physical exam (Primary Care) Vital Signs: Last Vital Signs Pulse 69 10/04/23 14:10 BP 114/62 10/04/23 14:10 Pulse Ox 96 10/04/23 14:10 Oxygen Delivery Method Room Air 10/04/23 14:10 BMI result Body Mass Index 27.7 Tobacco/Smoking Status: Tobacco use Status Tobacco use date assessed 10/04/23 10/04/23 14:15 Patient Tobacco Use Status Former Tobacco user 10/04/23 14:15 e-Cigarette/Vaping Use Never Used 10/04/23 14:15 PHQ-9: PHQ-9 Score PHQ-9: Total score 7 10/04/23 15:13 Depression Screening Interpretation: Negative Thrive Assessment: Date of Thrive Assessment Date Thrive assessed 10/04/23 10/04/23 15:13 Const General: cooperative Nutritional Appearance: well nourished Orientation/consciousness: patient oriented x3 HENMT Head: Yes normal to inspection, Yes normocephalic and Yes atraumatic Ears: TM's normal bilaterally Eyes General: appearance normal, both eyes and all related structures Alignment and Position: alignment normal and position normal Neck Neck: Yes normal visual inspection and Yes no lymphadenopathy Thyroid: Thyroid normal Resp Effort & Inspection: normal respiratory effort Auscultation: clear to auscultation bilaterally Cardio Rate: regular rate Rhythm: regular rhythm Heart sounds: S1 normal heart sound present, S2 normal heart sound present and no murmurs GI Palpation (GI): Soft to palpation and nontender Auscultation: normal bowel sounds Male General Exam: Yes normal external exam Penis: normal penis Scrotum: scrotum normal, testes descended bilaterally and no inguinal hernias Testes: no testicular mass Skin Rashes: no rashes Neuro General: patient oriented x3, moves all extremities, no focal motor deficits and deep tendon reflexes 2+ bilaterally Romberg Test: Negative Psych Appearance: grossly normal Mental Status: mental status grossly normal Speech and movement: Normal speech and movement present Affect: normal affect Attitude: cooperative Thought process: Normal thought process present Thought content: Normal thought content present Insight: Good insight present (Psych) Judgement: Good judgement present (Psych) Assessment and Plan Assessment & Plan (1) Screening PSA (prostate specific antigen): Code(s): Z12.5 - Encounter for screening for malignant neoplasm of prostate (2) Diabetes: Code(s): E11.9 - Type 2 diabetes mellitus without complications Plan: ozempic causing GI side effects, sending colby follows up with devan (3) Physical exam: Code(s): Z00.00 - Encounter for general adult medical examination without abnormal findings Plan The patient agreed to the use of a medical reception specialist for this encounter. Scribed for SAM Wren by Nyla Martínez medical reception specialist, on 10/04/2023 at 14:55 EST. Orders: Orders Prostate Specific Antigen Today Z12.5 - Encounter for screening for malignant neoplasm of prostate Medications: New tirzepatide (Mounjaro) 2.5 mg (0.5 mL) subcut QWEEK 2 mL 0RF 4 weeks Changed From trazodone 50 mg PO BEDTIME 30 days PRN 30 tabs 5RF sleep To trazodone 200 mg (2 x 100 mg) PO BEDTIME PRN 180 tabs 5RF sleep 90 days Discontinued semaglutide (Ozempic) Discontinued Reason: Doctor's Order 0.5 mg (0.736 mL) subcut QWEEK 9 mL 1RF Coding Level of Care Code Est Pt Prev Care >65y(00210) Diagnoses Screening PSA (prostate specific antigen) Z12.5 Diabetes E11.9 Physical exam Z00.00 Additional Codes FARHAN-7 Assessment Billing - FARHAN-7 Assessment Tool: FARHAN-7 Assessment 52296 ([id number])
== END 2023-10-04 15:15 | disposition home or self-care (01) ==
PROVIDERS: PCP Nurse Practitioner Family; Visit Provider Nurse Practitioner Family
DX: Z12.5 Encounter for screening for malignant neoplasm of prostate (principal); E11.9 Type 2 diabetes mellitus without complications; Z00.00 Encounter for general adult medical examination without abnormal findings
CPT/HCPCS: 99397

== ENCOUNTER 2024-01-26 08:50 | Outpatient (REF) | payer MEDICARE, SELFPAY | END 2024-01-26 08:51 | disposition home or self-care (01) | LOC: HO.HMGCLDS 08:50 | PROVIDERS: PCP Nurse Practitioner Family; Visit Provider Nurse Practitioner Family | DX: Z12.5 Encounter for screening for malignant neoplasm of prostate (principal) | CPT/HCPCS: 36415; 84153 ==

== ENCOUNTER 2024-02-06 07:00 | Outpatient (REF) | payer MEDICARE, SELFPAY ==
[2024-02-06 10:23] LABS: MANUAL DIFF FLAG NO
[2024-02-06 10:35] LABS: Appearance Urine Clear; Color Urine Yellow; Glucose Urine UA >=1000 mg/dL (Negative); Leukocyte Esterase Urine Negative (Negative); Nitrite Urine Negative (Negative); PH 5.5 (5.0-9.0); Specific Gravity - Urine >= 1.030 (1.005-1.025); UMIC TRIGGER UACC YES; Urine Blood Negative (Negative); Urine Ketones Trace mg/dL (Negative); Urine Protein Negative (Neg-Trace)
[2024-02-06 10:38] LABS: Basophils Percent Auto 0.6 % (0-2); Eosinophils Absolute Auto 0.3 X10*3/uL (0.0-0.4); Eosinophils Percent Auto 4.9 % (0-4); Hematocrit 45.1 % (42.0-52.0); Hemoglobin 14.7 g/dl (14.0-18.0); Imm Gran Abs Auto 0.06 X10*3/uL (0.00-0.03); Imm Gran Pct Auto 1.1 % (0.0-0.4); Lymphocytes Absolute Auto 1.3 X10*3/uL (1.2-4.9); Lymphocytes Percent Auto 24.7 % (20-40); Mean Corpuscular HGB Conc 32.6 g/dl (31.0-36.0); Mean Corpuscular Hemoglobin 30.6 pg (27.0-33.0); Mean Platelet Volume 11.1 fL (9.4-12.4); Monocytes Absolute Auto 0.4 X10*3/uL (0.1-1.2); Monocytes Percent Auto 7.8 % (2-11); Neutrophils Absolute Auto 3.2 x10*3/uL (2.0-8.3); Neutrophils Percent Auto 60.9 % (45-73); Platelet Count 136 X10*3/uL (160-400); Red Cell Distribution Width 14.2 % (11.0-16.0); White Blood Count 5.3 X10*3/uL (4.8-10.8)
[2024-02-06 10:52] LABS: Bacteria Urine None Seen (None Seen); Hyaline Casts Urine 0-2 /LPF (0-2); RBC Urine 0-2 /HPF (0-2); Squamous Epithelial Cell Urine 0-2 /HPF (0-2); WBC Urine 0-5 /HPF (0-5)
[2024-02-06 10:54] LABS: Estimated Average Glucose 134 mg/dL; Hemoglobin A1c % 6.3 % (<6.0)
[2024-02-06 11:12] LABS: Alanine Aminotransferase 27 U/L (0-40); Albumin Level 4.2 g/dL (3.5-5.0); Alkaline Phosphatase 94 U/L (39-117); Anion Gap 13 (12-20); Aspartate Amino Transferase 15 U/L (5-37); Bilirubin Total 0.5 mg/dL (0.0-1.0); Blood Urea Nitrogen 16 mg/dL (9-16); Calcium 9.4 mg/dL (8.4-10.2); Carbon Dioxide 30 mmol/L (22-29); Chloride 104 mmol/L (96-108); Cholesterol 103 mg/dL (<200); Estimated Glomerular Filt Rate > 60; Glucose Fasting 164 mg/dL (60-99); HDL Cholesterol 30 mg/dL (>40); LDL Cholesterol Calculated 21 mg/dL (<100); Potassium 4.4 mmol/L (3.3-5.1); Sodium 143 mmol/L (135-145); TSH reflex Free T4 2.11 uIU/mL (0.32-4.0); Total Protein 6.4 g/dL (6.5-8.0); Triglycerides 263 mg/dL (<150)
== END 2024-02-06 07:01 | disposition home or self-care (01) ==
LOC: HO.HMGCLDS 07:00
PROVIDERS: PCP Nurse Practitioner Family; Visit Provider Nurse Practitioner Family
DX: E11.9 Type 2 diabetes mellitus without complications (principal)
CPT/HCPCS: 36415; 80053; 80061; 81001; 83036; 84443; 85025

== ENCOUNTER 2024-02-07 14:24 | Outpatient (AMB) | payer OTHER, SELFPAY ==
--- NOTE | 2024-02-07 14:27 | MHC.OFFWIV ---
Intake Intake Visit Reasons: 4m F/U Patient Tobacco Use Status: Former Tobacco user Allergies diclofenac Allergy (Intermediate, Verified 10/04/23 16:29) Itching PFSH Medical History Obesity due to excess calories Type 2 diabetes mellitus with polyneuropathy Hyperlipidemia LDL goal <100 Hypothyroid Diabetes Hx of anxiety disorder Depression Elevated cholesterol Cervical vertebral fusion Surgical History Hx of endoscopy Hx of shoulder surgery History of esophagogastroduodenoscopy (EGD) H/O colonoscopy Hx of ventral hernia repair History of revision of total knee arthroplasty Hx of total knee arthroplasty H/O cervical discectomy Family History Father Heart attack Diabetes Mother Cancer Brother Diabetes Social History Household Members: Spouse Housing: House Alcohol intake: current Alcohol intake frequency: a few times a month Patient Tobacco Use Status: Former Tobacco user e-Cigarette/Vaping Use: Never Used Second Hand Smoke Exposure: No service: No Current occupational status: retired Cognitive needs: No Hearing needs: No Vision needs: No Coding
[2024-02-07 14:34] VITALS: BP 110/62; PULSE 62; O2SAT 98; BMI 27.4
--- NOTE | 2024-02-07 14:36 | A.OFFPC_ITS ---
Vital Signs 02/07/24 14:34 Height 6 ft Weight 202 lb BMI 27.4 BP 110/62 Blood Pressure Location Lt brachial Position Sitting Pulse 62 Pulse Source Pulse Oximeter Pulse Oximetry (%) 98 Intake Visit Reasons: 4m F/U Intake Note: pt is here for 4 month fup Allergies diclofenac Allergy (Intermediate, Verified 02/07/24 14:43) Itching Medication List - Last Reconciled 02/07/24 by Ozzie Rivera, DIGITAL PERFORMANCE ANALYST- atorvastatin 80 mg PO BEDTIME 90 days blood sugar diagnostic (True Metrix Glucose Test Strip) Use to check blood sugar 4 times a day or with symptoms of hypo/hyperglycemia blood-glucose sensor (Scientific MediaStyle Clem 3 Sensor device) Use to monitor blood sugars daily buspirone 7.5 mg PO BID 30 days cholecalciferol (vitamin D3) (Vitamin D3) 50 mcg PO DAILY 90 days [Diabetic shoes & 3 pair inserts as directed] empagliflozin 10 mg PO DAILY ferrous sulfate 325 mg PO DAILY glucagon (Glucagon Emergency Kit) 1 mg subcut Q20M PRN insulin glargine (Lantus Solostar U-100 Insulin) 56 units (0.56 mL) subcut BEDTIME lancets (FreeStyle Lancets) Tests 4X/day levothyroxine 25 mcg PO DAILY melatonin 3 mg PO BEDTIME PRN metformin 1,000 mg (2 x 500 mg) PO BID Novolog FlexPen U-100 Insulin (insulin aspart U-100) 6 units small meal, 8 unit medium and 10 unit large meal subcut 3 times a day; NS omeprazole 20 mg PO BID 90 days paroxetine HCl 60 mg (2 x 30 mg) PO QAM 90 days pen needle, diabetic (Comfort EZ Pen [place]) Use to administer insulin QID pioglitazone 30 mg PO DAILY 90 days semaglutide (Ozempic) 0.5 mg subcut QWEEK sildenafil (pulm.hypertension) 20 mg PO DAILY tamsulosin 0.4 mg PO DAILY trazodone 300 mg (3 x 100 mg) PO BEDTIME PRN 90 days Tobacco use date assessed: 10/04/23 Fall risk assessment: No Falls in past year Last assessed Fall Risk: 02/07/24 Dental Screening Dental Screen Date: 10/04/23 HPI 4m F/U HPI Details Pt is a diabetic, on a statin. Last A1C was 6.3. Microalbumin is up to date. Denies polyuria, polydipsia, does report intermittent minor neuropathy. Pt denies any signs and symptoms of hypoglycemia and does know how to correct it. Pt is seeing endo as well. Pt c/o diarrhea and constipation since starting GLP-1 agonist. I recommended stopping this and increasing jardiance, pt will speak w beverly hartman about this. Pt c/o insomnia. He is taking trazodone 200mg which is not helpful. Will increase to 300mg. [facility] Medical History Obesity due to excess calories Type 2 diabetes mellitus with polyneuropathy Hyperlipidemia LDL goal <100 Hypothyroid Diabetes Hx of anxiety disorder Depression Elevated cholesterol Cervical vertebral fusion Surgical History Hx of endoscopy Hx of shoulder surgery History of esophagogastroduodenoscopy (EGD) H/O colonoscopy Hx of ventral hernia repair History of revision of total knee arthroplasty Hx of total knee arthroplasty H/O cervical discectomy Family History Father Heart attack Diabetes Mother Cancer Brother Diabetes Social History Household Members: Spouse Housing: House Alcohol intake: current Alcohol intake frequency: a few times a month Patient Tobacco Use Status: Former Tobacco user e-Cigarette/Vaping Use: Never Used Second Hand Smoke Exposure: No service: No Current occupational status: retired Cognitive needs: No Hearing needs: No Vision needs: No Questionnaire PHQ-9 Over the last 2 weeks, how often have you been bothered by any of the following problems? 1. Little interest or pleasure in doing things: not at all 2. Feeling down, depressed, or hopeless: not at all 3. Trouble falling or staying asleep, or sleeping too much: nearly every day 4. Feeling tired or having little energy: more than half the days 5. Poor appetite or overeating: more than half the days 6. Feeling bad about yourself - or that you are a failure or have let yourself or your family down: not at all 7. Trouble concentrating on things, such as reading the newspaper or watching television: not at all 8. Moving or speaking so slowly that other people could have noticed. Or the opposite - being so fidgety or restless that you have been moving around a lot more than usual: not at all 9. Thoughts that you would be better off or of hurting yourself in some way: not at all Total score: 7 Depression Screening Interpretation: Negative Depression Screening Done: Yes 66838 - PHQ-9 Billing: Yes Source: Developed by Drs. Esteban Bolivar, Mabel Hernandes, Kenn Hardy and colleagues, with an educational mary from [employer]. Thrive Questionnaire Date Thrive assessed: 02/07/24 I am a: Patient What is your living situation today?: I have a steady place to live Within the past 12 months, did the food you bought not last and you didn't have the money to get more?: Never true Within the past 12 months, did you worry whether your food would run out before you got money to buy more?: Never true Do you have trouble paying for medicines?: No Do you have trouble getting transportation to medical appointments?: No Do you have trouble paying your heating and electricity bill?: Yes Do you have trouble taking care of your child, family member or friend?: No Do you have trouble with day-to-day activities such as bathing, preparing meals, shopping, managing finances, etc.?: No Are you interested in more education?: No Please select the resources that you would like help with: None Currently or been in a relationship where the following occur: No concerns reported THRIVE Score: 1 AUDIT C Alcohol Use Questionnaire (AUDIT-C) 1. How often do you have a drink containing alcohol?: 2-4 times a month 2. How many drinks containing alcohol do you have on a typical day when you are drinking?: 1 or 2 3. How often do you have six or more drinks on one occasion?: Never Total Score: 2 Score Reviewed/Action Taken: Yes FARHAN-7 AMB Questionnaire FARHAN-7 Date FARHAN - 7 assessed: 02/07/24 Feeling nervous, anxious, or on edge: 1 = Several days Not being able to stop or control worryin = Several days Worrying too much about different things: 1 = Several days Trouble relaxin = Several days Being so restless that it is hard to sit still: 0 = Not at all Becoming easily annoyed or irritable: 1 = Several days Feeling afraid as if something awful might happen: 0 = Not at all Total FARHAN-7 score (0-4 normal; 5-9 mild; 10-14 moderate; 15-21 severe): 5 Source: Developed by Drs. Esteban Bolivar, Mabel Hernandes, Kenn Hardy and colleagues, with an educational mary from [employer]. FARHAN-7 Assessment Billing FARHAN-7 Assessment Tool: FARHAN-7 Assessment 49241 Review of Systems Const Reports as per HPI Physical exam (Primary Care) Vital Signs: Last Vital Signs Pulse 62 02/07/24 14:34 BP 110/62 02/07/24 14:34 Pulse Ox 98 02/07/24 14:34 BMI result Body Mass Index 27.4 Tobacco/Smoking Status: Tobacco use Status Tobacco use date assessed 10/04/23 02/07/24 14:37 Patient Tobacco Use Status Former Tobacco user 02/07/24 14:37 e-Cigarette/Vaping Use Never Used 02/07/24 14:37 PHQ-9: PHQ-9 Score PHQ-9: Total score 7 02/07/24 14:44 Depression Screening Interpretation: Negative Thrive Assessment: Date of Thrive Assessment Date Thrive assessed 02/07/24 02/07/24 14:37 Currently or been in a relationship where the following occur: No concerns reported Const General: cooperative Orientation/consciousness: patient oriented x3 Resp Effort & Inspection: normal respiratory effort Auscultation: clear to auscultation bilaterally Cardio Rate: regular rate Rhythm: regular rhythm Heart sounds: S1 normal heart sound present and S2 normal heart sound present Neuro General: patient oriented x3 Extrem Other: bilat feet: + sensation with use of monofilament, feet intact Psych Appearance: grossly normal Mental Status: mental status grossly normal Speech and movement: Normal speech and movement present Affect: normal affect Attitude: cooperative Thought process: Normal thought process present Thought content: Normal thought content present Insight: Good insight present (Psych) Judgement: Good judgement present (Psych) Coding Level of Care Code Est Pt Level 3 (09699) Diagnoses Diabetes E11.9 At risk for long QT syndrome Z91.89 Additional Codes FARHAN-7 Assessment Billing - FARHAN-7 Assessment Tool: FARHAN-7 Assessment 74574 ([id number]) Assessment & Plan Assessment & Plan (1) Diabetes: Code(s): E11.9 - Type 2 diabetes mellitus without complications Category: Medical Plan: Labs ordered (2) At risk for long QT syndrome: Code(s): Z91.89 - Other specified personal risk factors, not elsewhere classified Category: Medical Plan: EKG ordered Plan The patient agreed to the use of a medical staff services coordinator for this encounter. Scribed for [facility] W[facility] by Nyla Martínez medical staff services coordinator, on 02/07/2024 at 14:40 EST. Orders: Orders Complete Blood Count Auto Diff Today E11.9 - Type 2 diabetes mellitus without complications Comprehensive [place]. Panel Fast Today E11.9 - Type 2 diabetes mellitus without complications TSH reflex Free T4 Today E11.9 - Type 2 diabetes mellitus without complications UA CC w/rflx Micro + Cult Today E11.9 - Type 2 diabetes mellitus without complications Lipid Panel Today E11.9 - Type 2 diabetes mellitus without complications ECG 12 lead EKG Today Z91.89 - Other specified personal risk factors, not elsewhere classified Medications: Changed From trazodone 200 mg (2 x 100 mg) PO BEDTIME 90 days PRN 180 tabs 5RF sleep To trazodone 300 mg (3 x 100 mg) PO BEDTIME PRN 270 tabs 5RF sleep 90 days
== END 2024-02-07 17:33 | disposition home or self-care (01) ==
PROVIDERS: PCP Nurse Practitioner Family; Visit Provider Nurse Practitioner Family
DX: E11.9 Type 2 diabetes mellitus without complications (principal); Z91.89 Other specified personal risk factors, not elsewhere classified

== ENCOUNTER → 2024-02-07 14:24 | Outpatient (BNVA) | payer MEDICARE, SELFPAY | PROVIDERS: PCP Nurse Practitioner Family; Visit Provider Nurse Practitioner Family | DX: E11.9 Type 2 diabetes mellitus without complications (principal); Z91.89 Other specified personal risk factors, not elsewhere classified | CPT/HCPCS: 96127; 99212 ==

== ENCOUNTER → 2024-02-10 13:22 | Outpatient (REF) | payer OTHER, SELFPAY ==
--- NOTE | 2024-02-10 13:35 | ECG_ITS ---
Test Reason : MED CHANGE Blood Pressure : / mmHG Vent. Rate : 062 BPM Atrial Rate : 062 BPM P-R Int : 196 ms QRS Dur : 090 ms QT Int : 398 ms P-R-T Axes : 058 006 036 degrees QTc Int : 403 ms Normal sinus rhythm Normal ECG No previous ECGs available Referred By: Ozzie Rivera Electronically Signed By:MAKAYLA GREENBERG
== END ==
LOC: HO.CARD 13:22
PROVIDERS: PCP Nurse Practitioner Family; Visit Provider Nurse Practitioner Family
DX: Z91.89 Other specified personal risk factors, not elsewhere classified (principal)
CPT/HCPCS: 93005

== ENCOUNTER 2024-06-07 09:41 | Outpatient (REF) | payer OTHER, SELFPAY ==
--- OUTSIDE RECORDS SUMMARY | 2024-06-07 12:41 | XMS_ITS | Clinical Summary ---
Author Organization [facility] Address [address] [place] [address] Care Team Providers Care Telephone Operators Supervisor Name Role Phone Addison Martinez MD Primary Care Provider Social History Tobacco Use Types Packs/Day Years Used Date Smoking Tobacco: Never Assessed Sex and Gender Information Value Date Recorded Sex Assigned at Not on file Gender Identity Not on file Sexual Orientation Not on file Plan of Treatment Health Maintenance Due Date Last Done Comments Hepatitis C Screening 1955 COVID-19 Vaccine (#1) 1955 Depression Screening 1968 Preventative Health Evaluation 02/06/1974 DTap / Tdap / Td (1 - Tdap) 02/06/1975 Colon Cancer Screening (Colonoscopy) 02/06/2001 Shingrix-Zoster Vaccine (1 of 2) 02/06/2006 Fall Risk Assessment 02/06/2021 Pneumococcal Vaccine (1 of 1 - PCV) 02/06/2021 Influenza Vaccine (#1) 2024 RSV Adult > 60+ Yrs or Pregn ant (1 - 1-dose 75+ series) 02/06/2031 Hepatitis B Vaccines Aged Out No long er eligible based on patient's age to complete this topic RSV Ped < 20 months Aged Out No longe r eligible based on patient's age to complete this topic Care Teams Telephone Operators Supervisor Relationship Specialty Start Date End Date Addison Martinez MD PCP - General Internal Medicine 01/25/17
[2024-06-07 13:03] LABS: MANUAL DIFF FLAG NO
[2024-06-07 13:09] LABS: Basophils Percent Auto 0.7 % (0-2); Eosinophils Absolute Auto 0.3 X10*3/uL (0.0-0.4); Eosinophils Percent Auto 4.7 % (0-4); Hematocrit 48.6 % (42.0-52.0); Hemoglobin 15.9 g/dl (14.0-18.0); Imm Gran Abs Auto 0.02 X10*3/uL (0.00-0.03); Imm Gran Pct Auto 0.3 % (0.0-0.4); Lymphocytes Absolute Auto 1.3 X10*3/uL (1.2-4.9); Lymphocytes Percent Auto 21.3 % (20-40); Mean Corpuscular HGB Conc 32.7 g/dl (31.0-36.0); Mean Corpuscular Hemoglobin 30.3 pg (27.0-33.0); Mean Corpuscular Volume 92.7 fL (80.0-98.0); Mean Platelet Volume 10.8 fL (9.4-12.4); Monocytes Absolute Auto 0.4 X10*3/uL (0.1-1.2); Monocytes Percent Auto 6.5 % (2-11); Neutrophils Percent Auto 66.5 % (45-73); Platelet Count 152 X10*3/uL (160-400); Red Blood Count 5.24 X10*6/uL (4.60-5.80); Red Cell Distribution Width 14.6 % (11.0-16.0)
[2024-06-07 13:18] LABS: Appearance Urine Clear; Color Urine Yellow; Glucose Urine UA >=1000 mg/dL (Negative); Leukocyte Esterase Urine Negative (Negative); Nitrite Urine Negative (Negative); PH 5.5 (5.0-9.0); Specific Gravity - Urine >= 1.030 (1.005-1.025); UMIC TRIGGER UACC YES; Urine Blood Negative (Negative); Urine Ketones Trace mg/dL (Negative); Urine Protein Negative (Neg-Trace)
[2024-06-07 13:24] LABS: Bacteria Urine None Seen (None Seen); Hyaline Casts Urine 0-2 /LPF (0-2); RBC Urine 0-2 /HPF (0-2); Squamous Epithelial Cell Urine 0-2 /HPF (0-2); WBC Urine 0-5 /HPF (0-5)
[2024-06-07 14:45] LABS: Alanine Aminotransferase 32 U/L (0-40); Albumin Level 4.5 g/dL (3.5-5.0); Alkaline Phosphatase 82 U/L (39-117); Anion Gap 12 (12-20); Aspartate Amino Transferase 21 U/L (5-37); Bilirubin Total 0.7 mg/dL (0.0-1.0); Blood Urea Nitrogen 15 mg/dL (9-16); Calcium 9.3 mg/dL (8.4-10.2); Carbon Dioxide 30 mmol/L (22-29); Chloride 106 mmol/L (96-108); Cholesterol 141 mg/dL (<200); Estimated Glomerular Filt Rate > 60; Glucose Fasting 166 mg/dL (60-99); HDL Cholesterol 39 mg/dL (>40); LDL Cholesterol Calculated 80 mg/dL (<100); Potassium 4.8 mmol/L (3.3-5.1); Sodium 143 mmol/L (135-145); TSH reflex Free T4 1.44 uIU/mL (0.32-4.0); Total Protein 7.1 g/dL (6.5-8.0); Triglycerides 112 mg/dL (<150)
== END 2024-06-07 09:42 | disposition home or self-care (01) ==
LOC: HO.HMGCLDS 09:41
PROVIDERS: PCP Nurse Practitioner Family; Visit Provider Nurse Practitioner Family
DX: E11.9 Type 2 diabetes mellitus without complications (principal)
CPT/HCPCS: 36415; 80053; 80061; 81001; 84443; 85025

== ENCOUNTER 2024-06-12 14:52 | Outpatient (AMB) | payer MEDICARE, SELFPAY ==
--- OUTSIDE RECORDS SUMMARY | 2024-06-12 14:54 | XMS_ITS | Clinical Summary ---
Author Organization [facility] Address [address] [place] [address] Care Team Providers Care Loan Approver Name Role Phone Addison Martinez MD Primary [...] age to complete this topic Care Teams Loan Approver Relationship Specialty Start Date End Date Addison Martinez MD PCP - General Internal Medicine 01/25/17
[2024-06-12 15:01] VITALS: BP 136/60; PULSE 69; RESP 16; TEMP 36.8; O2SAT 96; BMI 27.5
--- NOTE | 2024-06-12 15:01 | A.OFFPC_ITS ---
Vital Signs 06/12/24 15:01 Height 6 ft Weight 203 lb BMI 27.5 BP 136/60 Blood Pressure Location Lt brachial Position Sitting Respiration 16 Pulse 69 Pulse Source Pulse Oximeter Temp 98.3 F Temp Source Oral Pulse Oximetry (%) 96 Oxygen Delivery Method Room Air Intake Visit Reasons: 4 month follow up Intake Note: Pt is here today for his 4mo. f/u Allergies diclofenac Allergy (Intermediate, Verified 06/12/24 15:51) Itching Medication List - Last Reconciled 06/12/24 by AMBER MendezP- atorvastatin 80 mg PO BEDTIME 90 days blood sugar diagnostic (True Metrix Glucose Test Strip) Use to check blood sugar 4 times a day or with symptoms of hypo/hyperglycemia blood-glucose sensor ([employer] Clem 3 Sensor device) Use to monitor blood sugars daily cholecalciferol (vitamin D3) (Vitamin D3) 50 mcg PO DAILY 90 days [Diabetic shoes & 3 pair inserts as directed] empagliflozin 25 mg PO DAILY ferrous sulfate 325 mg PO DAILY glucagon (Glucagon Emergency Kit) 1 mg subcut Q20M PRN insulin glargine (Lantus Solostar U-100 Insulin) 38 units subcut BEDTIME lancets (FreeStyle Lancets) Tests 4X/day levothyroxine 25 mcg PO DAILY metformin 1,000 mg (2 x 500 mg) PO BID Novolog FlexPen U-100 Insulin (insulin aspart U-100) 6 units small meal, 8 unit medium and 10 unit large meal subcut 3 times a day; NS omeprazole 20 mg PO BID 90 days paroxetine HCl 60 mg (2 x 30 mg) PO QAM 90 days pen needle, diabetic (Comfort EZ Pen [place]) Use to administer insulin QID pioglitazone 30 mg PO DAILY 90 days semaglutide (Ozempic) 0.5 mg (0.736 mL) subcut QWEEK sildenafil (pulm.hypertension) 20 mg PO DAILY tamsulosin 0.4 mg PO DAILY Tobacco use date assessed: 06/12/24 Fall risk assessment: No Falls in past year Last assessed Fall Risk: 06/12/24 Dental Screening Dental Screen Date: 06/12/24 HPI 4 month follow up HPI Details Chief Complaint The patient complains of dyspnea on exertion over the past month. History of Present Illness The patient is a 69-year-old male presenting with diabetes management. His history includes Type 2 Diabetes Mellitus, for which he is insulin-dependent. His Hemoglobin A1c level is currently 7.4%. He had been taking Ozempic, but he has been out of it since the middle of last month (insurance reasons). His medication regimen also includes Jardiance, which is being adjusted from 10 mg to 25 mg. Past medical history reveals essential hypertension, well-controlled at home with readings in the 110s/70-80s range. Social History - Works in a [employer]. - Does not regularly monitor blood gluco se levels. Health Maintenance - Recent ophthalmologic examination is u p to date. - Monitoring of blood pressure shows wel l-controlled levels at home. - Ongoing monitoring of platelet levels due to some fluctuations but generally within normal limits. Review of Systems - Cardiovascular: Reports dyspnea on exe rtion. - Endocrine: Reports insulin-dependent d iabetes with recent non-adherence to Ozempic. Physical Exam General: Cooperative, healthy appearing, comfortable, no acute distress and well developed Orientation: Patient oriented x3 Limitations: No limitations Head: Normal to inspection Ears: Hearing grossly normal bilaterally Nose: Normal external nose present Face and sinus: Normal facial exam Eyes: Appearance normal, both eyes and all related structures Neck: Normal visual inspection and Yes full ROM Respiratory: Normal respiratory effort and able to speak in complete sentences. Clear to auscultation bilaterally Cardiovascular: Regular rate and rhythm. Normal S1 and S2 GI: Normal to inspection. Soft to palpation and nontender Skin: No rashes or lesions noted Neuro: Patient oriented x3 Extremities: Normal to inspection. Feet are intact bilaterally. Positive sensation with use of monofilament. Results - Labs: Hemoglobin A1c at 7.4%; Blood gl ucose level measured at 200 mg/dL. Plan - For Type 2 Diabetes Mellitus, resubmit prescription for Ozempic and adjust Jardiance from 10 mg to 25 mg. - Regarding dyspnea on exertion, recomme nd a full cardiac workup to assess underlying causes. - Continue monitoring of blood pressure and platelet levels as part of ongoing management of essential hypertension. Discussion Notes I discussed with the patient the importance of reinitiating Ozempic to better manage his blood glucose levels. We emphasized the need to increase Jardiance to 25 mg for improved glycemic control. The necessity of regular blood sugar monitoring was highlighted. Patient Instructions - Restart Ozempic as prescribed once micheal ilable. - Increase Jardiance dose to 25 mg as di rected. - Monitor blood sugar levels regularly a nd report any significantly high or low readings. - Continue home blood pressure monitorin g and maintain a record. [facility] Medical History Obesity due to excess calories Type 2 diabetes mellitus with polyneuropathy Hyperlipidemia LDL goal <100 Hypothyroid Diabetes Hx of anxiety disorder Depression Elevated cholesterol Cervical vertebral fusion Surgical History Hx of endoscopy Hx of shoulder surgery History of esophagogastroduodenoscopy (EGD) H/O colonoscopy Hx of ventral hernia repair History of revision of total knee arthroplasty Hx of total knee arthroplasty H/O cervical discectomy Family History Father Heart attack Diabetes Mother Cancer Brother Diabetes Social History Household Members: Spouse Housing: House Alcohol intake: current Alcohol intake frequency: a few times a month Patient Tobacco Use Status: Former Tobacco user e-Cigarette/Vaping Use: Never Used Second Hand Smoke Exposure: No service: No Current occupational status: retired Cognitive needs: No Hearing needs: No Vision needs: No Questionnaire PHQ-9 Over the last 2 weeks, how often have you been bothered by any of the following problems? 1. Little interest or pleasure in doing things: several days 2. Feeling down, depressed, or hopeless: not at all 3. Trouble falling or staying asleep, or sleeping too much: nearly every day 4. Feeling tired or having little energy: more than half the days 5. Poor appetite or overeating: several days 6. Feeling bad about yourself - or that you are a failure or have let yourself or your family down: not at all 7. Trouble concentrating on things, such as reading the newspaper or watching television: not at all 8. Moving or speaking so slowly that other people could have noticed. Or the opposite - being so fidgety or restless that you have been moving around a lot more than usual: not at all 9. Thoughts that you would be better off or of hurting yourself in some way: not at all Total score: 7 Source: Developed by Drs. Esteban Bolivar, Mabel Hernandes, Kenn Hardy and colleagues, with an educational mary from [employer]. Thrive Questionnaire Date Thrive assessed: 06/12/24 I am a: Patient What is your living situation today?: I have a steady place to live Within the past 12 months, did the food you bought not last and you didn't have the money to get more?: Sometimes True Within the past 12 months, did you worry whether your food would run out before you got money to buy more?: Never true Do you have trouble paying for medicines?: No Do you have trouble getting transportation to medical appointments?: No Do you have trouble paying your heating and electricity bill?: No Do you have trouble taking care of your child, family member or friend?: No Do you have trouble with day-to-day activities such as bathing, preparing meals, shopping, managing finances, etc.?: No Are you currently unemployed and looking for a job?: No Are you interested in more education?: No Please select the resources that you would like help with: Food Currently or been in a relationship where the following occur: No concerns reported THRIVE Score: 1 AUDIT C Alcohol Use Questionnaire (AUDIT-C) 1. How often do you have a drink containing alcohol?: 2-4 times a month 2. How many drinks containing alcohol do you have on a typical day when you are drinking?: 1 or 2 3. How often do you have six or more drinks on one occasion?: Never Total Score: 2 FARHAN-7 AMB Questionnaire FARHAN-7 Date FARHAN - 7 assessed: 06/12/24 Feeling nervous, anxious, or on edge: 0 = Not at all Not being able to stop or control worryin = Several days Worrying too much about different things: 1 = Several days Trouble relaxin = Several days Being so restless that it is hard to sit still: 1 = Several days Becoming easily annoyed or irritable: 1 = Several days Feeling afraid as if something awful might happen: 0 = Not at all Total FARHAN-7 score (0-4 normal; 5-9 mild; 10-14 moderate; 15-21 severe): 5 Source: Developed by Drs. Esteban Bolivar, Mabel Hernandes, Kenn Hardy and colleagues, with an educational mary from [employer]. FARHAN-7 Assessment Billing FARHAN-7 Assessment Tool: FARHAN-7 Assessment 22584 Physical exam (Primary Care) Vital Signs: Last Vital Signs Temp 98.3 F 06/12/24 15:01 Pulse 69 06/12/24 15:01 Resp 16 06/12/24 15:01 BP 136/60 06/12/24 15:01 Pulse Ox 96 06/12/24 15:01 Oxygen Delivery Method Room Air 06/12/24 15:01 BMI result Body Mass Index 27.5 Tobacco/Smoking Status: Tobacco use Status Tobacco use date assessed 06/12/24 06/12/24 15:10 Patient Tobacco Use Status Former Tobacco user 06/12/24 15:10 e-Cigarette/Vaping Use Never Used 06/12/24 15:10 PHQ-9: PHQ-9 Score PHQ-9: Total score 7 06/12/24 15:58 Thrive Assessment: Date of Thrive Assessment Date Thrive assessed 06/12/24 06/12/24 15:10 Currently or been in a relationship where the following occur: No concerns reported Results AMB Hemoglobin A1c AMB Hemoglobin A1c 7.4 % Last Edit by Azul Kee CMA on 06/12/24 16:02 Coding Level of Care Code Est Pt Level 3 (27977) Diagnoses Diabetes E11.9 Additional Codes FARHAN-7 Assessment Billing - FARHAN-7 Assessment Tool: FARHAN-7 Assessment 77739 ([id number]) Assessment & Plan Assessment & Plan (1) Diabetes: Code(s): E11.9 - Type 2 diabetes mellitus without complications Category: Medical Plan . Orders: Orders AMB Hemoglobin A1c Today E11.42 - Type 2 diabetes mellitus with diabetic polyneuropathy Medications: New semaglutide (Ozempic) 0.5 mg (0.736 mL) subcut QWEEK 3 mL 0RF Changed From insulin glargine (Lantus Solostar U-100 Insulin) 56 units (0.56 mL) subcut BEDTIME 45 mL 1RF E11.9 - Type 2 diabetes mellitus without complications To insulin glargine (Lantus Solostar U-100 Insulin) 38 units subcut BEDTIME E11.9 - Type 2 diabetes mellitus without complications From empagliflozin 10 mg PO DAILY 90 tabs 1RF E11.42 - Type 2 diabetes mellitus with diabetic polyneuropathy, E11.9 - Type 2 diabetes mellitus without complications To empagliflozin 25 mg PO DAILY 90 tabs 1RF E11.42 - Type 2 diabetes mellitus with diabetic polyneuropathy, E11.9 - Type 2 diabetes mellitus without complications
== END 2024-06-12 16:06 | disposition home or self-care (01) ==
PROVIDERS: PCP Nurse Practitioner Family; Visit Provider Nurse Practitioner Family
DX: E11.42 Type 2 diabetes mellitus with diabetic polyneuropathy (principal)

== ENCOUNTER → 2024-06-12 14:52 | Outpatient (BNVA) | payer OTHER, SELFPAY | PROVIDERS: PCP Nurse Practitioner Family; Visit Provider Nurse Practitioner Family | DX: E11.9 Type 2 diabetes mellitus without complications (principal); Z79.4 Long term (current) use of insulin | CPT/HCPCS: 83036; 96127; 99212 ==

== ENCOUNTER 2024-11-01 14:44 | Outpatient (AMB) | payer MEDICARE, SELFPAY ==
--- NOTE | 2024-11-01 14:50 | A.OFFPC_ITS ---
Vital Signs 11/01/24 14:52 Height 6 ft Weight 199 lb 4 oz BMI 27.0 BP 138/74 Blood Pressure Location Lt brachial Position Sitting Pulse 67 Pulse Source Pulse Oximeter Temp 98.4 F Temp Source Oral Pulse Oximetry (%) 98 Oxygen Delivery Method Room Air Intake Visit Reasons: PE - see comments Allergies diclofenac Allergy (Intermediate, Verified 11/01/24 15:41) Itching Medication List - Last Reconciled 11/01/24 by AMBER MendezP- atorvastatin 80 mg PO BEDTIME 90 days blood sugar diagnostic (True Metrix Glucose Test Strip) Use to check blood sugar 4 times a day or with symptoms of hypo/hyperglycemia blood-glucose sensor ([place] Clem 3 Sensor device) Use to monitor blood sugars daily cholecalciferol (vitamin D3) (Vitamin D3) 50 mcg PO DAILY [Diabetic shoes & 3 pair inserts as directed] empagliflozin 25 mg PO DAILY glucagon (Glucagon Emergency Kit) 1 mg subcut Q20M PRN insulin glargine (Lantus Solostar U-100 Insulin) 38 units subcut BEDTIME lancets (FreeStyle Lancets) Tests 4X/day levothyroxine 25 mcg PO DAILY metformin 1,000 mg (2 x 500 mg) PO BID Novolog FlexPen U-100 Insulin (insulin aspart U-100) 6 units small meal, 8 unit medium and 10 unit large meal subcut 3 times a day; NS omeprazole 20 mg PO BID 90 days paroxetine HCl 60 mg (2 x 30 mg) PO QAM 90 days pen needle, diabetic (Comfort EZ Pen [place]) Use to administer insulin QID pioglitazone 30 mg PO DAILY 90 days semaglutide (Ozempic) 1 mg (0.75 mL) subcut QWEEK sildenafil (pulm.hypertension) 20 mg PO DAILY suvorexant (Belsomra) 5 mg PO BEDTIME tamsulosin 0.4 mg PO DAILY Tobacco use date assessed: 11/01/24 Fall risk assessment: No Falls in past year Last assessed Fall Risk: 11/01/24 Dental Screening Dental Screen Date: 11/01/24 Did you have a dental visit in the last 12 months?: Yes Did you have a dental problem in the last 6 months where you did not have access to dental care?: No Was dental information given to patient?: Patient has dentist HPI PE - see comments HPI Details History of Present Illness The patient is a 69-year-old male presenting with a physical examination and management of diabetes mellitus. The patient has a history of diabetes mellitus and is under regular care by an clinical specialist vascular. His recent hemoglobin A1c is 7.0, showing improvement from a previous level of 7.4. He denies experiencing neuropathy, fever, blurred vision, blood in stool, constipation, diarrhea, or any suicidal or homicidal ideation. Health Maintenance - Annual eye exams encouraged - Microalbumin test to be conducted - Blood type screening requested - PSA screening planned for April Social History Review of Systems - Neurological: Denies neuropathy - General: Denies fever - Ophthalmologic: Denies blurred vision - Gastrointestinal: Denies blood in stoo l, constipation, diarrhea - Psychiatric: Denies suicidal ideation, homicidal ideation Physical Exam General: Cooperative, healthy appearing, comfortable, no acute distress and well developed Orientation: Patient oriented x3 Limitations: No limitations Head: Normal to inspection Ears: Hearing grossly normal bilaterally Nose: Normal external nose present Face and sinus: Normal facial exam Eyes: Appearance normal, both eyes and all related structures Neck: Normal visual inspection and Yes full ROM Respiratory: Normal respiratory effort and able to speak in complete sentences. Clear to auscultation bilaterally Cardiovascular: Regular rate and rhythm. Normal S1 and S2 GI: Normal to inspection. Soft to palpation and nontender Skin: No rashes or lesions noted Neuro: Patient oriented x3, feet intact, + sensation Extremities: Normal to inspection Results - Labs: Hemoglobin A1c 7.0 Plan The patient will continue to manage diabetes mellitus with regular endocrinology follow-ups and maintain an annual eye exam schedule. A microalbumin test will be conducted to monitor kidney function, and blood type screening will be performed as requested by the patient. PSA screening is planned for April to monitor prostate health. Discussion Notes I discussed with the patient the importance of maintaining regular endocrinology appointments and annual eye exams to manage diabetes effectively. We also talked about conducting a microalbumin test to assess kidney function and agreed to perform blood type screening as per his request. I advised scheduling a PSA screening in April to ensure timely monitoring of prostate health. Patient Instructions - Continue regular visits with your endo crinologist. - Schedule and attend annual eye exams. - Complete the microalbumin test as orde red. - Follow up for blood type screening. - Plan for PSA screening in April. [facility] Medical History Obesity due to excess calories Type 2 diabetes mellitus with polyneuropathy Hyperlipidemia LDL goal <100 Hypothyroid Diabetes Hx of anxiety disorder Depression Elevated cholesterol Cervical vertebral fusion Surgical History Hx of endoscopy Hx of shoulder surgery History of esophagogastroduodenoscopy (EGD) H/O colonoscopy Hx of ventral hernia repair History of revision of total knee arthroplasty Hx of total knee arthroplasty H/O cervical discectomy Family History Father Heart attack Diabetes Mother Cancer Brother Diabetes Social History Household Members: Spouse Housing: House Alcohol intake: current Alcohol intake frequency: a few times a month Patient Tobacco Use Status: Former Tobacco user e-Cigarette/Vaping Use: Never Used Second Hand Smoke Exposure: No service: No Current occupational status: retired Cognitive needs: No Hearing needs: No Vision needs: No Questionnaire PHQ-9 Over the last 2 weeks, how often have you been bothered by any of the following problems? 1. Little interest or pleasure in doing things: several days 2. Feeling down, depressed, or hopeless: not at all 3. Trouble falling or staying asleep, or sleeping too much: nearly every day 4. Feeling tired or having little energy: more than half the days 5. Poor appetite or overeating: several days 6. Feeling bad about yourself - or that you are a failure or have let yourself or your family down: not at all 7. Trouble concentrating on things, such as reading the newspaper or watching television: not at all 8. Moving or speaking so slowly that other people could have noticed. Or the opposite - being so fidgety or restless that you have been moving around a lot more than usual: not at all 9. Thoughts that you would be better off or of hurting yourself in some way: not at all Total score: 7 Depression Screening Interpretation: Negative Depression Screening Done: Yes Source: Developed by Drs. Esteban Bolivar, Mabel Kenn Bustos and colleagues, with an educational mary from [facility]. Thrive Questionnaire Date Thrive assessed: 11/01/24 I am a: Patient What is your living situation today?: I have a steady place to live Within the past 12 months, did the food you bought not last and you didn't have the money to get more?: Never true Within the past 12 months, did you worry whether your food would run out before you got money to buy more?: Never true Do you have trouble paying for medicines?: No Do you have trouble getting transportation to medical appointments?: No Do you have trouble paying your heating and electricity bill?: No Do you have trouble taking care of your child, family member or friend?: No Do you have trouble with day-to-day activities such as bathing, preparing meals, shopping, managing finances, etc.?: No Are you currently unemployed and looking for a job?: No Are you interested in more education?: No Please select the resources that you would like help with: Food Currently or been in a relationship where the following occur: No concerns reported THRIVE Score: 0 AUDIT C Alcohol Use Questionnaire (AUDIT-C) 1. How often do you have a drink containing alcohol?: 2-4 times a month 2. How many drinks containing alcohol do you have on a typical day when you are drinking?: 1 or 2 3. How often do you have six or more drinks on one occasion?: Never Total Score: 2 FARHAN-7 AMB Questionnaire FARHAN-7 Date FARHAN - 7 assessed: 11/01/24 Feeling nervous, anxious, or on edge: 0 = Not at all Not being able to stop or control worryin = Several days Worrying too much about different things: 1 = Several days Trouble relaxin = Several days Being so restless that it is hard to sit still: 1 = Several days Becoming easily annoyed or irritable: 1 = Several days Feeling afraid as if something awful might happen: 0 = Not at all Total FARHAN-7 score (0-4 normal; 5-9 mild; 10-14 moderate; 15-21 severe): 5 Source: Developed by Drs. Esteban Bolivar, Kenn Suero and colleagues, with an educational mary from [facility]. Physical exam (Primary Care) Vital Signs: Last Vital Signs Temp 98.4 F 11/01/24 14:52 Pulse 67 11/01/24 14:52 BP 138/74 11/01/24 14:52 Pulse Ox 98 11/01/24 14:52 Oxygen Delivery Method Room Air 11/01/24 14:52 BMI result Body Mass Index 27.0 Tobacco/Smoking Status: Tobacco use Status Tobacco use date assessed 11/01/24 11/01/24 14:59 Patient Tobacco Use Status Former Tobacco user 11/01/24 14:50 e-Cigarette/Vaping Use Never Used 11/01/24 14:50 PHQ-9: PHQ-9 Score PHQ-9: Total score 7 11/01/24 14:59 Depression Screening Interpretation: Negative Thrive Assessment: Date of Thrive Assessment Date Thrive assessed 11/01/24 11/01/24 14:59 Currently or been in a relationship where the following occur: No concerns reported Results AMB Hemoglobin A1c AMB Hemoglobin A1c 7.0 % Last Edit by Meghana Naranjo CMA on 11/01/24 15:11 Results Reviewed Results Reviewed: Laboratory Last Values Hgb A1c (Clinic) 7.0 % (4.0-6.0) H 11/01/24 14:59 Coding Level of Care Code Est Pt Prev Care >65y(22652) Diagnoses Diabetes E11.9 Blood typing encounter Z01.83 Physical exam Z00.00 Assessment & Plan Assessment & Plan (1) Diabetes: Code(s): E11.9 - Type 2 diabetes mellitus without complications Category: Medical (2) Blood typing encounter: Code(s): Z01.83 - Encounter for blood typing Category: Medical (3) Physical exam: Code(s): Z00.00 - Encounter for general adult medical examination without abnormal findings Category: Medical Plan . Orders: Orders Complete Blood Count Auto Diff Today E11.9 - Type 2 diabetes mellitus without complications UA CC w/rflx Micro + Cult Today E11.9 - Type 2 diabetes mellitus without complications Lipid Panel Today E11.9 - Type 2 diabetes mellitus without complications Microalbumin, Random (w Creat) Today Z00.00 - Encounter for general adult medical examination without abnormal findings AMB Hemoglobin A1c Today Z13.9 - Encounter for screening, unspecified Comprehensive [place]. Panel Fast Today E11.9 - Type 2 diabetes mellitus without complications TSH reflex Free T4 Today E11.9 - Type 2 diabetes mellitus without complications ABO RH Type Today Z01.83 - Encounter for blood typing
[2024-11-01 14:52] VITALS: BP 138/74; PULSE 67; TEMP 36.9; O2SAT 98; BMI 27.0
--- OUTSIDE RECORDS SUMMARY | 2024-11-01 17:55 | XMS_ITS | Clinical Summary ---
Author Organization [facility] Address [address] [place] [address] Care Team Providers Care Finisher Special [employer]ocks Name Role Phone Addison Martinez MD Primary [...] of 1 - PCV) 02/06/2021 Influenza Vaccine (Season Ended) 2025 RSV Adult > 60+ Yrs or Pregn ant (1 - 1-dose 75+ series) 02/06/2031 Hepatitis B Vaccines Aged Out No long er eligible based on patient's age to complete this topic RSV Ped < 20 months Aged Out No longe r eligible based on patient's age to complete this topic Care Teams Finisher [employer]ocks Relationship Specialty Start Date End Date Addison Martinez MD PCP - General Internal Medicine 01/25/17
== END 2024-11-01 15:53 | disposition home or self-care (01) ==
PROVIDERS: PCP Nurse Practitioner Family; Visit Provider Nurse Practitioner Family
DX: Z00.00 Encounter for general adult medical examination without abnormal findings (principal); E11.9 Type 2 diabetes mellitus without complications

== ENCOUNTER → 2024-11-01 14:44 | Outpatient (BNVA) | payer MEDICARE, OTHER, SELFPAY | PROVIDERS: PCP Nurse Practitioner Family; Visit Provider Nurse Practitioner Family | DX: Z00.00 Encounter for general adult medical examination without abnormal findings (principal); E11.9 Type 2 diabetes mellitus without complications; E78.00 Pure hypercholesterolemia, unspecified; Z87.891 Personal history of nicotine dependence | CPT/HCPCS: 83036; 99397 ==

== ENCOUNTER 2025-04-22 08:49 | Outpatient (REF) | payer MEDICARE, OTHER, SELFPAY ==
[2025-04-22 10:04] LABS: MANUAL DIFF FLAG NO
[2025-04-22 10:16] LABS: Hematocrit 47.9 % (42.0-52.0); Hemoglobin 15.6 g/dl (14.0-18.0); Imm Gran Abs Auto 0.03 X10*3/uL (0.00-0.03); Imm Gran Pct Auto 0.5 % (0.0-0.4); Lymphocytes Absolute Auto 1.7 X10*3/uL (1.2-4.9); Mean Corpuscular HGB Conc 32.6 g/dl (31.0-36.0); Mean Corpuscular Hemoglobin 30.2 pg (27.0-33.0); Mean Corpuscular Volume 92.6 fL (80.0-98.0); NRBC Abs Auto 0.000 X10*3/uL (0.0-0.012); NRBC Pct Auto 0.0 /100WBC (0.0-0.2); Platelet Count 148 X10*3/uL (160-400); Red Blood Count 5.17 X10*6/uL (4.60-5.80); White Blood Count 5.7 X10*3/uL (4.8-10.8)
[2025-04-22 10:42] LABS: Alanine Aminotransferase 25 U/L (0-40); Albumin Level 4.8 g/dL (3.5-5.0); Alkaline Phosphatase 87 U/L (39-117); Anion Gap 12 (12-20); Aspartate Amino Transferase 26 U/L (5-37); Blood Urea Nitrogen 15 mg/dL (9-16); Calcium 9.4 mg/dL (8.4-10.2); Carbon Dioxide 30 mmol/L (22-29); Chloride 104 mmol/L (96-108); Cholesterol 117 mg/dL (<200); Estimated Glomerular Filt Rate > 60; HDL Cholesterol 35 mg/dL (>40); Potassium 3.9 mmol/L (3.3-5.1); Sodium 142 mmol/L (135-145); Total Protein 6.9 g/dL (6.5-8.0); Triglycerides 135 mg/dL (<150)
[2025-04-22 10:47] LABS: Appearance Urine Cloudy; Glucose Urine UA >=1000 mg/dL (Negative); PH 5.5 (5.0-9.0); Specific Gravity - Urine >= 1.030 (1.005-1.025); UMIC TRIGGER UACC YES
[2025-04-22 11:08] LABS: Microalbum/Creatinine Ratio Ur 10.2 ug/mg cr (<30)
== END 2025-04-22 08:50 | disposition home or self-care (01) ==
LOC: HO.HMGCLDS 08:49
PROVIDERS: PCP Nurse Practitioner Family; Visit Provider Nurse Practitioner Family
DX: Z00.00 Encounter for general adult medical examination without abnormal findings (principal); Z01.83 Encounter for blood typing; E11.9 Type 2 diabetes mellitus without complications
CPT/HCPCS: 36415; 80053; 80061; 81001; 82043; 82570; 84443; 85025; 86900; 86901

== ENCOUNTER 2025-05-06 12:53 | Outpatient (REF) | payer MEDICARE, OTHER, SELFPAY | END 2025-05-06 12:54 | disposition home or self-care (01) | LOC: HO.HMGCLDS 12:53 | PROVIDERS: PCP Nurse Practitioner Family; Visit Provider Nurse Practitioner Family | DX: Z01.83 Encounter for blood typing (principal); E11.9 Type 2 diabetes mellitus without complications; I95.1 Orthostatic hypotension; Z12.5 Encounter for screening for malignant neoplasm of prostate | CPT/HCPCS: 36415; 84153; 86900; 86901; 96127; 99212 ==

== ENCOUNTER 2025-05-06 12:53 | Outpatient (AMB) | payer MEDICARE, SELFPAY ==
[2025-05-06 13:03] VITALS: BP 128/60; PULSE 68; RESP 16; O2SAT 97
--- NOTE | 2025-05-06 13:03 | A.OFFPC_ITS ---
Vital Signs 05/06/25 13:03 Weight 208 lb BP 128/60 Blood Pressure Location Lt brachial Position Sitting Respiration 16 Pulse 68 Pulse Source Pulse Oximeter Pulse Oximetry (%) 97 Oxygen Delivery Method Room Air Intake Visit Reasons: 6m f/u Room Service Waiter/Waitress Required: No Accompanied by: Self / Same As Patient Allergies diclofenac Allergy (Intermediate, Verified 05/06/25 13:13) Itching Medication List - Last Reconciled 05/06/25 by Ozzie Rivera CONTINUOUS MINER OPERATOR- atorvastatin 80 mg PO BEDTIME 90 days blood sugar diagnostic (True Metrix Glucose Test Strip) Use to check blood sugar 4 times a day or with symptoms of hypo/hyperglycemia blood-glucose sensor ([place] Clem 3 Sensor device) Use to monitor blood sugars daily cholecalciferol (vitamin D3) (Vitamin D3) 50 mcg PO DAILY [Diabetic shoes & 3 pair inserts as directed] empagliflozin 25 mg PO DAILY glucagon (Glucagon Emergency Kit) 1 mg subcut Q20M PRN insulin glargine (Lantus Solostar U-100 Insulin) 38 units subcut BEDTIME lancets (FreeStyle Lancets) Tests 4X/day levothyroxine 25 mcg PO DAILY metformin 1,000 mg (2 x 500 mg) PO BID Novolog FlexPen U-100 Insulin (insulin aspart U-100) 6 units small meal, 8 unit medium and 10 unit large meal subcut 3 times a day; NS omeprazole 20 mg PO BID 90 days paroxetine HCl 60 mg (2 x 30 mg) PO QAM 90 days pen needle, diabetic (Comfort EZ Pen [place]) Use to administer insulin QID pioglitazone 30 mg PO DAILY 90 days semaglutide (Ozempic) 1 mg (0.75 mL) subcut QWEEK sildenafil (pulm.hypertension) 20 mg PO DAILY suvorexant (Belsomra) 5 mg PO BEDTIME tamsulosin 0.4 mg PO DAILY Tobacco use date assessed: 05/06/25 Fall risk assessment: No Falls in past year Last assessed Fall Risk: 05/06/25 Dental Screening Dental Screen Date: 05/06/25 Did you have a dental visit in the last 12 months?: No Did you have a dental problem in the last 6 months where you did not have access to dental care?: No Was dental information given to patient?: Patient declined HPI 6m f/u HPI Details Chief Complaint Patient presents for a general medical follow-up visit and diabetes management. History of Present Illness The patient is a 70 year old male presenting for a general medical follow-up and management of his diabetes. He is also followed by an enrollment coordinator for his diabetes, and his most recent A1c is 6.8. He denies any neuropathies and reports that his eye exam is up to date, but he declined a foot exam today. The patient reports the onset of a slight cough yesterday, noting that many family members have a viral illness. He also reports experiencing some dizziness upon standing. Social History - Family Exposure: The patient reports s ignificant exposure to family members who are currently experiencing a viral illness. Health Maintenance A PSA test will be ordered as he is due for screening. A blood typing test will be ordered as per his request. Review of Systems - Respiratory: Reports a slight cough th at started yesterday. Denies shortness of breath. - Cardiovascular: Denies chest pain. - Neurological: Reports dizziness upon s tanding. Denies neuropathies and headaches. - Eyes: Denies blurred vision. denies any fevers, chills, N/V Physical Exam General: Cooperative, healthy appearing, comfortable, no acute distress and well developed Orientation: Patient oriented x3 Limitations: No limitations Head: Normal to inspection Ears: Hearing grossly normal bilaterally Nose: Normal external nose present Face and sinus: Normal facial exam Eyes: Appearance normal, both eyes and all related structures Neck: Normal visual inspection and Yes full ROM, no lymphadenopathy Respiratory: Normal respiratory effort and able to speak in complete sentences. Clear to auscultation bilaterally, slight cough present Cardiovascular: Regular rate and rhythm. Normal S1 and S2 GI: Normal to inspection. Soft to palpation and nontender Skin: No rashes or lesions noted Neuro: Patient oriented x3, Extremities: Normal to inspection, declined foot exam today Results - Lab Results: - Hemoglobin A1c: 6.8. - Microalbumin: Unremarkable. Plan 1. Diabetes Mellitus The patient's diabetes is managed in conjunction with an enrollment coordinator. His recent A1c of 6.8 is at goal. He denies neuropathies, and his microalbumin level is normal. 2. Viral Illness The patient has a slight cough that began yesterday, likely secondary to a viral illness given his family members are sick. He has no shortness of breath or chest pain, and his lungs are clear. 3. Orthostatic Hypotension The patient reports dizziness upon standing, which is attributed to orthostatic changes. He was advised to change positions slowly. Discussion Notes I discussed with the patient that his dizziness upon standing is likely from orthostatic changes, which are drops in blood pressure, and I advised him to rise slowly. I informed him that I will be ordering a PSA for his routine screening and will also order a blood typing test as he requested. Patient Instructions - Your dizziness when standing is likely from a temporary drop in blood pressure. Be sure to stand up slowly from a sitting or lying position. - Your slight cough is likely due to a v irus. Many of your family members have this as well. Let us know if you develop shortness of breath or chest pain. - We are ordering blood work to check yo ur PSA level for prostate cancer screening and to find out your blood type. - Continue to monitor your blood sugars. Your recent A1C is good at 6.8. [facility] Medical History Obesity due to excess calories Type 2 diabetes mellitus with polyneuropathy Hyperlipidemia LDL goal <100 Hypothyroid Diabetes Hx of anxiety disorder Depression Elevated cholesterol Cervical vertebral fusion Surgical History Hx of endoscopy Hx of shoulder surgery History of esophagogastroduodenoscopy (EGD) H/O colonoscopy Hx of ventral hernia repair History of revision of total knee arthroplasty Hx of total knee arthroplasty H/O cervical discectomy Family History Father Heart attack Diabetes Mother Cancer Brother Diabetes Social History Household Members: Spouse Housing: House Alcohol intake: current Alcohol intake frequency: a few times a month Patient Tobacco Use Status: Former Tobacco user e-Cigarette/Vaping Use: Never Used Second Hand Smoke Exposure: No service: No Current occupational status: retired Cognitive needs: No Hearing needs: No Vision needs: No Questionnaire PHQ-9 Over the last 2 weeks, how often have you been bothered by any of the following problems? 1. Little interest or pleasure in doing things: not at all 2. Feeling down, depressed, or hopeless: not at all 3. Trouble falling or staying asleep, or sleeping too much: not at all 4. Feeling tired or having little energy: not at all 5. Poor appetite or overeating: not at all 6. Feeling bad about yourself - or that you are a failure or have let yourself or your family down: not at all 7. Trouble concentrating on things, such as reading the newspaper or watching television: not at all 8. Moving or speaking so slowly that other people could have noticed. Or the opposite - being so fidgety or restless that you have been moving around a lot more than usual: not at all 9. Thoughts that you would be better off or of hurting yourself in some way: not at all Total score: 0 Depression Screening Interpretation: Negative Depression Screening Done: Yes 82946 - PHQ-9 Billing: Yes Source: Developed by Drs. Esteban Bolivar, Kenn Suero and colleagues, with an educational mary from [employer]. Thrive Questionnaire Date Thrive assessed: 06/05/24 I am a: Patient What is your living situation today?: I have a steady place to live Within the past 12 months, did the food you bought not last and you didn't have the money to get more?: Sometimes True Within the past 12 months, did you worry whether your food would run out before you got money to buy more?: Never true Do you have trouble paying for medicines?: No Do you have trouble getting transportation to medical appointments?: No Do you have trouble paying your heating and electricity bill?: No Do you have trouble taking care of your child, family member or friend?: No Do you have trouble with day-to-day activities such as bathing, preparing meals, shopping, managing finances, etc.?: No Are you currently unemployed and looking for a job?: No Are you interested in more education?: No Currently or been in a relationship where the following occur: No concerns reported THRIVE Score: 1 FARHAN-7 AMB Questionnaire FARHAN-7 Date FARHAN - 7 assessed: 11/01/24 Source: Developed by Drs. Esteban Bolivar, Kenn Suero and colleagues, with an educational mary from [employer]. Physical exam (Primary Care) Vital Signs: Last Vital Signs Pulse 68 05/06/25 13:03 Resp 16 05/06/25 13:03 BP 128/60 05/06/25 13:03 Pulse Ox 97 05/06/25 13:03 Oxygen Delivery Method Room Air 05/06/25 13:03 Tobacco/Smoking Status: Tobacco use Status Tobacco use date assessed 11/01/24 05/06/25 13:05 Patient Tobacco Use Status Former Tobacco user 05/06/25 13:05 e-Cigarette/Vaping Use Never Used 05/06/25 13:05 Depression Screening Interpretation: Negative Thrive Assessment: Date of Thrive Assessment Date Thrive assessed 06/05/24 05/06/25 13:05 Currently or been in a relationship where the following occur: No concerns reported Coding Level of Care Code Est Pt Level 3 (57635) Diagnoses Blood typing encounter Z Diabetes E11.9 Additional Codes PHQ-9 - 95592 - PHQ-9 Billing: Yes ([id number]) Assessment & Plan Assessment & Plan (1) Blood typing encounter: Code(s): Z01.83 - Encounter for blood typing Category: Medical (2) Diabetes: Code(s): E11.9 - Type 2 diabetes mellitus without complications Category: Medical Plan . Orders: Orders Prostate Specific Antigen Scr Today Z12.5 - Encounter for screening for malignant neoplasm of prostate ABO RH Type Today Z01.83 - Encounter for blood typing
--- OUTSIDE RECORDS SUMMARY | 2025-05-06 14:48 | XMS_ITS | Clinical Summary ---
Author Organization [facility] Prior to 10/06/24 Address [address] [place] [address] Care Team Providers Care Patient Biller Name Role Phone Addison Martinez MD Primary [...] 1 - PCV) 02/06/2021 Influenza Vaccine (#1) 2025 RSV Adult > 60+ Yrs or Pregn ant (1 - 1-dose 75+ series) 02/06/2031 Hepatitis B Vaccines Aged Out No long er eligible based on patient's age to complete this topic RSV Ped < 20 months Aged Out No longe r eligible based on patient's age to complete this topic Care Teams Patient Biller Relationship Specialty Start Date End Date Addison Martinez MD PCP - General Internal Medicine 01/25/17
--- OUTSIDE RECORDS SUMMARY | 2025-05-06 14:48 | XMS_ITS | Clinical Summary ---
Author Organization [facility] Address [address] [facility] [address] [place] [phone] Phone Care Team Providers Care Academic Affairs Director Name Role Phone Ozzie Rivera [employer] DEVELOPER Primary Care Provider + Allergies Active Allergy Reactions Criticality Noted Date Comments Diclofenac Itching 02/11/2023 Medications PARoxetine (PAXIL) 40 MG tablet Take 40 mg by mouth every morning. Active omeprazole (PRILOSEC) 20 MG capsule Take 20 mg by mouth daily. Active cholecalciferol (VITAMIN D3) 2,000 unit tablet Take 2,000 Units by mouth daily. Active acetaminophen (TYLENOL) 500 MG tablet Take 500 mg by mouth every 6 (six) hours as needed for pain (specific location in comments). Active tadalafil (CIALIS) 5 MG tablet Take 5 mg by mouth daily as needed for erectile dysfunction. Active FREESTYLE LETI 14 DAY SENSOR KitIndications:T ype 2 diabetes mellitus with diabetic polyneuropathy, with long-term current use of insulin 2 application by Miscellaneous route 4 (four) times a day before meals and nightly. 1 kit 11 06/28/19 19 Active ibuprofen (ADVIL ORAL) Take by mouth. Activ e levothyroxine (SYNTHROID,LEVOT HROID) 25 MCG tablet Take 1 tablet by mouth every morning. 12/30/19 23 Active ferrous sulfate 325 mg (65 mg eek iron) tablet Take 1 tablet by mouth daily. 02/01/20 23 Active PARoxetine (PAXIL) 30 MG tablet Take 60 mg by mouth every morning. 07/21/19 24 Active atorvastatin (LIPITOR) 80 MG tablet Take 80 mg by mouth daily. 06/11/19 24 Active lancets 28 gauge MiscIndications: Type 2 diabetes mellitus with diabetic polyneuropathy, with long-term current use of insulin 1 each by Miscellaneous route every morning. 100 each 3 08/18/19 24 Active FREESTYLE LITE METER meter kitIndications:T ype 2 diabetes mellitus with diabetic polyneuropathy, with long-term current use of insulin Use as instructed 1 kit 08/18/19 24 Active BELSOMRA 5 mg tablet Take 5 mg by mouth nightly at bedtime. 02/21/20 24 Active FREESTYLE LETI 3 SENSOR DeviIndications: Type 2 diabetes mellitus with diabetic polyneuropathy, with long-term current use of insulin Inject 1 Application under the skin every 14 (fourteen) days. 2 each 05/18/19 25 Active flash glucose scanning reader (FREESTYLE LETI 14 DAY READER)Indicatio ns:Type 2 diabetes mellitus with diabetic polyneuropathy, with long-term current use of insulin CHECK 4 TIMES A DAY BEFORE MEALS AND NIGHTLY. 2 each 06/22/19 25 Active tamsulosin (FLOMAX) 0.4 mg Cap Take 1 capsule by mouth every morning. 08/19/19 25 Active metFORMIN (GLUCOPHAGE-XR) 500 MG 24 hr tabletIndication s:Type 2 diabetes mellitus with diabetic polyneuropathy, with long-term current use of insulin Take 2 tablets (1,000 mg total) by mouth 2 (two) times a day. 360 tablet 1 08/23/19 25 Active blood-glucose sensor (DEXCOM G7 SENSOR) DeviIndications: Type 2 diabetes mellitus with diabetic polyneuropathy, with long-term current use of insulin Please monitor glucose at least 4 times a day, before meals and at bedtime 3 each 09/08/19 25 Active FREESTYLE LITE Strp stripsIndication s:Type 2 diabetes mellitus with diabetic polyneuropathy, with long-term current use of insulin USE 1 EACH EVERY MORNING 100 strip 3 09/19/19 25 Active DEXCOM G7 MINE BOSS MiscIndications: Type 2 diabetes mellitus with diabetic polyneuropathy, with long-term current use of insulin PLEASE MONITOR GLUCOSE AT LEAST 4 TIMES A DAY, BEFORE MEALS AND AT BEDTIME 1 each 07/31/20 25 Active BD ULTRA-FINE ORIG PEN NEEDLE 29 gauge x 1/2 Ndle USE 1 PEN NEEDLE EVERY MORNING 100 each 11 12/07/19 25 Active empagliflozin (JARDIANCE) 25 mg tabletIndication s:Type 2 diabetes mellitus with diabetic polyneuropathy, with long-term current use of insulin Take 1 tablet (25 mg total) by mouth daily. 90 tablet 1 02/22/20 25 Active insulin glargine (LANTUS SOLOSTAR U-100 INSULIN) 100 unit/mL (3 mL) InPn injection penIndications:T ype 2 diabetes mellitus with diabetic polyneuropathy, with long-term current use of insulin Inject 45 Units under the skin nightly at bedtime. 30 mL 1 02/22/20 25 Active semaglutide (OZEMPIC) 1 mg/dose (4 mg/3 mL) subcutaneous injection penIndications:T ype 2 diabetes mellitus with diabetic polyneuropathy, with long-term current use of insulin Inject 1 mg under the skin every 7 days. 6 mL 1 02/22/20 25 Active pioglitazone (ACTOS) 30 MG tabletIndication s:Type 2 diabetes mellitus with diabetic polyneuropathy, with long-term current use of insulin Take 1 tablet (30 mg total) by mouth daily. 90 tablet 1 02/22/20 25 Active insulin lispro (ADMELOG, HUMALOG) 100 unit/mL injection penIndications:T ype 2 diabetes mellitus with diabetic polyneuropathy, with long-term current use of insulin 12-18 units 3 times a day with meals 15 mL 1 02/22/20 25 Active Active Problems Problem Noted Date Diagnosed Date Hyperlipidemia LDL goal <100 02/11/2023 Assessment & Plan (02/21/2025 1:21 PM EDT): Based on new guidelines the LDL has to be less than 70 mg/dL for diabetic patient. His last LDL was 80 mg/dL. Will repeat her lipid panel for the follow-up visit and if it remains above 70 mg/dL we can adjust his medications. He is already on a high dose of atorvastatin 80 mg so we could potentially add ezetimibe or switch to rosuvastatin 40. Assessment & Plan (08/22/2024 2:38 PM EDT): Controlled. LDL 80 mg/dL continue atorvastatin 80 mg no changes required. Assessment & Plan (08/18/2023 1:55 PM EDT): Controlled. LDL 66 mg/dL on atorvastatin 80 mg no changes required. Assessment & Plan (02/11/2023 10:14 AM EDT): Controlled. LDL 80 mg/dL HDL 39 patient continue atorvastatin 40 mg daily. Type 2 diabetes mellitus wit h diabetic polyneuropathy, with long-term current use of insulin 04/26/2018 Assessment & Plan (02/21/2025 1:30 PM EDT): Fair control. Hemoglobin A1c decreased from 7.4 to 7.0%. Unfortunately his in target range decreased from 70 to 66%. We need this to be minimum of 70% in order to say that he has good glycemic control. He needs to use NovoLog with breakfast and dinner to improve glycemic levels. He is not using this and he should. He should continue his other medications. He should return for follow-up in 6 months. Assessment & Plan (08/22/2024 2:39 PM EDT): Based on A1c of 7.4% he is fair control. But on the last 2 weeks the GMI is closer to 7.1% and 75% in range which is good. He does need to use more NovoLog with his dinner to prevent spiking this only time that he is spiking. I would not make any other changes continue his current regimen. Follow-up in 6 months. Repeat hemoglobin A1c in 6 months. Assessment & Plan (02/22/2024 2:30 PM EDT): Controlled. Continue current regimen as indicated in the HPI no changes required. Assessment & Plan (08/18/2023 2:11 PM EDT): Controlled. Hemoglobin A1c 6.9%. He should stick with 1 dose of Lantus and I suggest 45 units. If he has low glucose in the morning then he should decrease it to 40 units. As for the other medications he should just continue the current regimen. He should repeat a hemoglobin A1c prior to the follow-up visit in 6 months time. The patient ask at what point can he come off the other medications and just stay on insulin. First of all he is very insulin resistant so he may not be able to come off some of his medications. Second of all medications such as Jardiance, Ozempic, and pioglitazone all have cardiovascular benefits so he should not come off of. Jardiance also has renal benefits. If anything he should try to limit how much Lantus he is using. Assessment & Plan (02/11/2023 10:10 AM EDT): Controlled based on hemoglobin A1c of 6.8%. The only concern is still occasional lows in the funeral prearrangement counselor hours. He informs me that he has been using NovoLog at nighttime if his glucose levels are above 150 mg/dL. He will use 4 units of NovoLog without eating so of course this will result in hypoglycemia. I told him not to administer NovoLog for glucose of 150 mg/dL because this is abnormal glucose level and he can go up in size of 180 mg/dL. So is particularly dangerous because you do not want to have hypoglycemia overnight this can potentially result in seizures and . The patient has current severe hypoglycemia. There is significant concern hypoglycemic seizures which can be potentially fatal. I reemphasized to the patient that the use of insulin is high risk therapy that requires intensive monitoring for toxic effects (hypoglycemia, metabolic decompensation) due to the narrow therapeutic index of the medication and other factors (such as age, acute renal insufficiency, variable appetite and use of steroids) therefore close monitoring of blood sugar with regular review is paramount in the safe use of this medication. Assessment & Plan (03/08/2019 2:26 PM EDT): Uncontrolled. His hemoglobin A1c 7.9% he sat slight improvement. He will continue on Lantus 60 units nightly metformin extended release 500 mg 2 tablets twice a day, Jardiance 25 mg daily and will increase Actos from 15 mg to 30 mg. He should use NovoLog 02-15-18 as he is currently doing. He needs to remember to bring his meter when he seen the fire tower keeper. He informs me that he plans to follow with Dr. Villalta in [place]. Assessment & Plan (07/26/2018 2:00 PM EDT): Uncontrolled based on his hemoglobin A1c of 8.1% but his glycemic levels are good since he has made some changes in his diet and he added Actos 15 mg daily. I am not going to make any changes to his other regimen as he should continue Lantus 69 units nightly metformin extended release 500 mg 2 tablets twice a day, Jardiance 25 mg daily and NovoLog correction scale. He will follow in 3 months time Assessment & Plan (06/28/2018 1:34 PM EST): Uncontrolled. Average glucose 168 his last hemoglobin A1c was 8.3%. It is too soon to repeat the hemoglobin A1c. Despite the NovoLog administration he still has postprandial hyperglycemia sometimes he forgets to administer a dose sometimes he thinks he is already administer it. He did try a GLP-1 agonist Trulicity in the past and develop adverse effects but he now feels that he probably was not due to the medication because he continues to have the same symptoms. He would like a repeat trial of a GLP-1 agonists and I have prescribed Ozempic 1 mg weekly. The patient was informed that GLP-1 agonists have four mechanisms of action. It acts as a neurotransmitter acting on the hypothalamus to suppress appetite. It also decreases gastric emptying, so that the patient feels full and won't eat as much thereby improving glycemic levels. It prevents glucagon secretion thereby inhibiting hepatic gluconeogenesis. Lastly, it stimulates insulin secretion after a meal in a glucose dependent and prevents post-prandial hyperglycemia. The patient does not have medullary thyroid carcinoma or history of pancreatitis so it should be safe to use. The patient was also informed that they may experience nausea the first few weeks and this should improve. Other adverse events include vomiting, diarrhea and constipation. Another possibility that we could use his Actos if he does not tolerate a GLP-1 agonists. I will have him follow-up in 4 weeks time. Assessment & Plan (04/26/2018 3:39 PM EST): Uncontrolled. His hemoglobin A1c is 8.3%. He has been using less insulin and ran out of insulin at one point. Advised him to increase the Lantus back up to 60 units continue NovoLog 12-18 units based on glycemic levels. Continue Jardiance 25 mg daily and metformin extended release 500 mg 2 tablets daily. He should monitor glucose levels 4 times a day. He wants me to prescribe the freestyle leti CGM and I am willing to do this but he must bring in the meter download so that we can review glycemic levels and he must show that he is monitoring at least 4 times a day. Again he is monitoring glycemic levels in order to use NovoLog administration based on correction scale. He will follow-up in 9 weeks. Encounters Date Type Department Care Team Description 02/21/2025 1:00 PM EDT Office Visit [facility] [address] [place] [address] Ozzie Ornelas, Type 2 diabetes mellitus with diabetic polyneuropathy, with long-term current use of insulin (Primary Dx); Hyperlipidemia LDL goal <70 02/21/2025 Orders Only [facility] [address] [place] [address] Ozzie Ornelas DO Type 2 diabetes mellitus with diabetic polyneuropathy, with long-term current use of insulin (Primary Dx) 02/21/2025 Refill [facility] [address] [place] [address] Ozzie Ornelas DO Med Change Request from Last 3 Months Family History Medical History Relation Comments No Known Problems Brother 1 Diabetes Brother 2 Peripheral vascular disease Brother 2 Coronary artery disease Father No Known Problems Maternal Grandfather No Known Problems Maternal Grandmother Cancer Mother No Known Problems Paternal Grandfather Diabetes Paternal Grandmother Relation Status Comments Brother 1 Alive Brother 2 Alive Father Maternal Grandfather Maternal Grandmother Mother Paternal Grandfather Paternal Grandmother Social History Tobacco Use Types Packs/Day Years Used Date Smoking Tobacco: Former Cigarettes 2 5 1 06/27/1987 - 04/26/1993 Passive Smoke Exposure: Past Smokeless Tobacco: Never Tobacco Cessation:Counseling Given: Not Answered Alcohol Use Standard Drinks/Week Comments Yes 1 (1 standard drink = 0.6 oz pur e alcohol) once weekly Education Answer Date Recorded Are you interested in more education? Not on natalie e 09/03/2022 Are you concerned about learning? Not on file 09/03/2022 No 09/03/2022 No 09/03/2022 Digital Access Answer Date Recorded No 10/01/2022 No 10/01/2022 Reliable internet access at home? Not on file 10/01/2022 Device with a working camera? Not on file Sex and Gender Information Value Date Recorded Sex Assigned at Not on file Legal Sex Male 3:25 PM EST Gender Identity Not on file Sexual Orientation Not on file Last Filed Vital Signs Vital Sign Reading Time Taken Comments Blood Pressure 146/68 02/21/2025 1:00 PM EDT Pulse 70 02/21/2025 1:00 PM EDT Temperature 36.5 C (97.7 F) 08/18/2023 1:48 PM EDT Respiratory Rate 20 02/21/2025 1:00 PM EDT Oxygen Saturation 98% 02/21/2025 1:00 PM EDT Inhaled Oxygen Concentration - - Weight 93.5 kg (206 lb 3.2 oz) 02/21/2025 1:00 P M EDT Height 180.3 cm (5' 11 ) 08/22/2024 2:07 PM EDT Body Mass Index 28.76 08/22/2024 2:07 PM EDT Plan of Treatment Upcoming Encounters Date Type Department Care Team (Late st Contact Info) Description 09/03/2025 1:00 PM EDT Office Visit [facility] [address] [place] [address] Ozzie Ornelas DO [address] [place] [id number] [email or web address] Health Maintenance Due Date Last Done Comments Adult Td,Tdap Booster 1955 CREATININE LEVEL 1956 TSH LEVEL 1956 DEPRESSION SCREENING 1968 HEPATITIS C SCREENING 02/06/1974 COLOGUARD 02/06/2001 COLONOSCOPY 02/06/2001 COLORECTAL CANCER SCREENING 02/06/2001 FIT TEST 02/06/2001 FOBT 02/06/2001 SIGMOIDOSCOPY 02/06/2001 VIRTUAL COLONOSCOPY 02/06/2001 RSV VACCINE (1 - Risk 50-74 years 1-dose series) 02/06/2006 ZOSTER VACCINES (1 of 2) 02/06/2006 DIABETIC EYE EXAM 04/27/2018 URINE MICROALBUMIN/CREATININE RATIO 04/27/2018 PNEUMOCOCCAL VACCINES (50+ years) (2 of 2 - PCV) 11/05/2020 11/06/2019 ABDOMINAL AORTIC ANEURYSM (AAA) SCREENING 02/06/2021 INFLUENZA VACCINE (#1) 2024 03/28/2019, 2017 COVID-19 VACCINE (2 - 2024- season) 2025 09/19/2020 BLOOD PRESSURE 08/22/2025 02/21/2025 HEMOGLOBIN A1C 08/22/2025 02/21/2025, 02/08, 07/26/2018, Additional history exists SMOKING STATUS SCREENING (Once After 26 Yrs) Completed 02/21/2025 HEPATITIS A VACCINES Aged Out No long er eligible based on patient's age to complete this topic HIB VACCINES Aged Out No longer eligi ble based on patient's age to complete this topic MENINGOCOCCAL VACCINES (ACWY) Aged Out No longer eligible based on patient's age to complete this topic MENINGOCOCCAL VACCINES (B) Aged Out N o longer eligible based on patient's age to complete this topic Medical Devices Not on file Procedures Procedure Name Priority Date/Time Associated Diagnosis Comments POCT HEMOGLOBIN A1C Routine 02/21/2025 1 :23 PM EDT Type 2 diabetes mellitus with diabetic polyneuropathy, with long-term current use of insulin from Last 3 Months Results * (ABNORMAL) POCT Hemoglobin A1c (02/21/2025 1:23 PM EDT) Hemoglobin A1c 7.0(A) 4.2 - 5.6 % Other 02/21/2025 1:23 PM EDT Ozzie Ornelas DO LAB POCT ENTER/EDIT ORDERABLES F inal Result from Last 3 Months Insurance [facility] MEDICARE PART A & B Member Subscriber Plan / Payer (Ef fective 2002-Present) Name:Esteban Cline Member ID:[id number] Relation to Subscriber:Self Name:Esteban Cline Subscriber ID:[id number] Payer ID:[id number] Group ID:Not on file Type:Medicare Address: [employer] [facility] [address] [place] [address] [facility] MEDICARE REPLACEMENT [facility] MEDICARE PART A & B [facility] MEDICARE REPLACEMENT [facility] MEDIC[facility] PART A & B [facility] MEDICARE [facility]PLACEMENT [facility] MEDIC[facility] PART A & B [facility] MEDICARE REPLACEMENT [facility] MEDICARE PART A & B [facility] MEDICARE REPLACEMENT [facility] MEDIC[facility] PART A & B [facility] [place] [phone] [address] [facility] Care Teams Academic Affairs Director Relationship Specialty Start Date End Date Ozzie Rivera NP [address] [place] [address] PCP - General Nurse Practitioner 02/11/23 Additional Source Comments The information contained in this document represents components of the legal health record. It is not the complete legal health record.[facility]
--- OUTSIDE RECORDS SUMMARY | 2025-05-06 14:48 | XMS_ITS | Encounter Summary ---
Author Organization [facility] Address [address] [place] [phone] Phone Care Team Providers Care Television Operator Name Role Phone Ozzie Rivera PROP SAWYER Primary Care Provider + Reason for Visit * Reason Comments Med Change Request Encounter Details Date Type Department Care Team (Late st Contact Info) Description 02/21/[address] [facility] [address] [place] [address] Ozzie Ornelas DO [address] [place] [address] [email or web address] Request Social History Tobacco Use Types Packs/Day Years Used Date Smoking Tobacco: Former Cigarettes 2 5 1 06/27/1987 - 04/26/1993 Passive Smoke Exposure: Past Smokeless Tobacco: Never Alcohol Use Standard Drinks/Week Comments Yes 1 [...] on file Sexual Orientation Not on file documented as of this encounter Plan of Treatment Upcoming Encounters Date Type Department Care Team (Late st Contact Info) Description 09/03/2025 1:00 PM EDT Office Visit [facility] [address] [place] [address] Ozzie Ornelas DO [address] [place] [address] [email or web address] documented as of this encounter Visit Diagnoses Diagnosis Type 2 diabetes mellitus with diabetic polyneuropathy, with long-term current use of insulin documented in this encounter Care Teams Television Operator Relationship Specialty Start Date End Date Ozzie Rivera NP [address] [place] [address] PCP - General Nurse Practitioner 02/11/23 documented as of this encounter Additional Source Comments The information contained in this document represents components of the legal health record. It is not the complete legal health record.[facility]
== END 2025-05-06 14:02 | disposition home or self-care (01) ==
LOC: HO.HMCC 12:54
PROVIDERS: PCP Nurse Practitioner Family; Visit Provider Nurse Practitioner Family
DX: Z01.83 Encounter for blood typing (principal); E11.9 Type 2 diabetes mellitus without complications